=== PATIENT | male | born 1950 | race Caucasian/White ===

== ENCOUNTER 2017-01-28 14:00 | Inpatient (IN) ==
--- NOTE | 2017-01-28 14:17 | Emergency Department Note ---
SOB HPI - General Chief Complaint: Shortness of Breath/Dyspnea Stated Complaint: worsening shortness of breath Time Seen by Provider: 01/28/17 14:11 Source: patient Mode of arrival: EMS Limitations: no limitations - History of Present Illness This patient has had increasing shortness of breath for a month. He says it has been worse last 2 weeks. He does have a history of heart failure and may have gained quite a bit of weight from 347-417. He does take 80 mg of Lasix a day. No chest pain. At this time he looks pretty comfortable. He does live in an assisted living center. Complaint: shortness of breath Onset (ago): week(s) Severity: moderate Consistency/Duration: constant Improves with: oxygen, upright position Worsens with: lying flat Known history of: congestive heart failure Associated symptoms: Reports: denies other symptoms - Related Data Home Medications Medication Instructions Recorded Confirmed apixaban 5 mg tablet 5 mg PO BID 07/03/16 11/19/16 omeprazole 20 mg capsule,delayed 20 mg PO QDAY cap 07/03/16 11/19/16 release Bisacodyl [Dulcolax] 10 mg [place] ONCE PRN 10/29/16 11/19/16 diphenhydrAMINE HCL [Banophen] 25 mg PO Q6HP PRN 10/29/16 11/19/16 Previous Rx's Medication Instructions Recorded Vancomycin 2,000 mg IV Q24H #4 vial 11/03/16 cefTRIAXone [Rocephin] 2 gm IV Q24H #4 vial 11/03/16 finasteride 5 mg tablet 5 mg PO QDAY #90 tab 11/07/16 acetaminophen 500 mg tablet 500 mg PO Q8H PRN #90 tab 12/03/16 folic acid 1 mg tablet 2 tab PO QDAY #60 tab 12/03/16 lactulose 20 gram/30 mL oral 30 ml PO TID PRN #890 ml 12/03/16 solution potassium chloride ER 20 mEq 1 cap PO TID #90 tab 12/03/16 tablet,extended release(part/cryst) tamsulosin 0.4 mg capsule 0.4 mg PO BID #60 cap 12/03/16 tramadol 50 mg tablet 50 mg PO Q6H PRN #120 tab 12/04/16 atenolol 50 mg tablet 50 mg PO QDAY #45 tab 12/24/16 furosemide 80 mg tablet 80 mg PO QDAY #90 tab 01/02/17 CPAP with 02 1 puff INHALATION ONCE #1 each 01/06/17 oxycodone 5 mg capsule 5 mg PO Q6H PRN #120 cap 01/06/17 Allergies Allergy/AdvReac Type Severity Reaction Status Date / Time Penicillins Allergy Intermediate Hives Verified 10/29/16 19:28 codeine AdvReac Mild Nausea Verified 10/29/16 19:28 Review of Systems Constitutional: Denies: fever Eyes: Denies: eye pain ENT ED: Denies: ear pain Cardiovascular: Denies: chest pain, palpitations Respiratory: Reports: dyspnea. Denies: cough, wheezes Gastrointestinal: Denies: abdominal pain, nausea, vomiting Genitourinary: Denies: urgency Musculoskeletal: Denies: back pain Integumentary: Denies: rash Neurological: Denies: headache Psychiatric: Denies: anxiety Past Medical History - Past Medical History [facility] Narrative: Medical History (Last Updated 12/04/16 @ 14:[address]) Urinary tract infection (Acute) Complicated UTI (urinary tract infection) (Acute) Chest pain (Chronic) Patellar dislocation (Chronic) Localized, primary osteoarthritis of shoulder region (Chronic) Preglaucoma (Chronic) Gait instability (Chronic) Body mass index 50.0-59.9, adult (Chronic) Bilateral leg edema (Chronic) Chronic kidney disease, stage IV (severe) (Chronic) Cellulitis of right lower extremity (Chronic) Urinary retention (Chronic) Intertriginous candidiasis (Chronic) Scrotal edema (Chronic) Antral ulcer (Chronic 11/22/15) Spinal stenosis (Chronic) 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) Arthritis of shoulder (Chronic ~2003) Arthritis of both knees (Chronic ~1999) Melanoma (Chronic) Carcinoma (Chronic) Sarcoma (Chronic) Prostate cancer (Chronic ~2015) Daytime sleepiness (Chronic) Depression (Chronic) Atrial fibrillation (Chronic) Hearing loss (Chronic ~1975) Hypertension, essential (Chronic ~1981) Shoulder joint pain (Chronic) Knee joint pain (Chronic) Kidney failure (Chronic) Stomach ulcer (Chronic ~2015) Enlarged prostate (Chronic) Radiation (Chronic ~02/2016) Capps catheter in place (Chronic ~05/2016) History of tobacco use (Chronic) History of alcohol abuse (Chronic) Obstructive sleep apnea (Chronic) Hyperlipidemia (Chronic) Rotator cuff syndrome of right shoulder (Chronic) Osteoarthritis of both knees (Chronic) Chronic lower back pain (Chronic) Morbid obesity (Chronic) Alcohol abuse (Chronic) Elevated LFTs (Chronic) Hyperglycemia (Chronic) Past Surgical History (Last Updated 07/28/16 @ 09:36 by Alexa Marie) H/O Spinal surgery (Chronic ~2013) H/O colonoscopy (Chronic ~2007) H/O melanoma excision (Chronic ~1995) History of excision of lesion (Chronic ~1995) History of laminectomy (Chronic 02/2004) History of left knee replacement (Chronic ~2012) History of radiation therapy (Chronic 1995) History of surgery (Chronic ~03/19/15) S/P tendon repair (Chronic ~2013) Family History Brother Non Hodgkin's lymphoma Heart attack Family/Other Alzheimer's disease Mother Stroke Tuberculosis Pulmonary fibrosis Father Tuberculosis COPD (chronic obstructive pulmonary disease) Hx of CABG S/P AVR (aortic valve replacement) Medical history: Reports: arthritis, atrial fibrillation, coronary artery disease, hypertension, liver disease, other (history of morbid obesity, history of atrial fibrillation, history of multiple medical problems) Surgical history ED: Reports: orthopedic, other, prostatectomy, other (history of sarcoma, history of melanoma status post excision. History of prostate cancer) - Social History Alcohol use: Reports: Unknown Drug use: Reports: none Physical Exam - General Limitations: no limitations General appearance: alert, in no apparent distress - Head Head exam: atraumatic, normocephalic - Eye Eye exam: Present: normal appearance - ENT ENT exam: normal exam - Neck Neck exam: Present: normal inspection - Chest Chest inspection: Present: normal inspection - Respiratory Respiratory exam: Present: normal lung sounds bilaterally - Cardiovascular Cardiovascular exam: Present: regular rate, normal rhythm, normal heart sounds - Abdominal Exam Abdominal exam: Present: soft. Absent: distention, tenderness - Extremities Exam Extremities exam: Present: pedal edema - Neurological Exam Neurological exam: Present: alert - Psychiatric Psychiatric exam: Present: normal affect, normal mood - Skin Skin exam: Present: warm, dry, intact Course Vital Signs Temperature 97.3 F 01/28/17 14:01 Pulse Rate 72 01/28/17 14:01 Respiratory Rate 18 01/28/17 14:01 Blood Pressure 125/71 01/28/17 14:01 Pulse Oximetry (%) 92 01/28/17 14:01 Temperature 97.3 F 01/28/17 14:01 Pulse Rate 56 L 01/28/17 15:29 Respiratory Rate 13 01/28/17 15:29 Blood Pressure 121/65 01/28/17 15:29 Pulse Oximetry (%) 98 01/28/17 15:29 Shortness of Breath/Dyspnea - MDM Narrative Medical decision making narrative: Chest x-ray is consistent with congestive heart failure and a left lower lobe pneumonia. Upon and is 0.1 but creatinine is 2.1. I discussed case with Dr. Kirby and the patient will be admitted to telemetry unit here. I did give him Levaquin and 40 mg of Lasix IV. - Lab Data Lab results reviewed: Yes I reviewed the patient's lab results. Result diagrams: 01/28/17 14:16 01/28/17 14:16 Lab Results 01/28/17 01/28/17 01/28/17 Range/Units 14:16 14:16 14:16 WBC 3.6 L (4.5-11.0) K/mcL RBC 2.57 L (4.50-5.90) M/mcL Hgb 8.2 L (13.5-16.5) g/dL Hct 24.1 L (41.0-55.0) % MCV 93.7 (80.0-100.0) fL MCH 32.0 (26.0-34.0) pg MCHC 34.2 (31.0-36.0) g/dL RDW 15.6 H (11.5-14.5) % Plt Count 174 (140-440) K/mcL MPV 8.3 (7.4-10.4) fL Gran % 67.0 (38.0-78.0) % Lymph % (Auto) 13.3 L (15.5-49.0) % Ida % (Auto) 13.1 H (1.0-12.0) % Eos % (Auto) 5.7 (0.0-7.0) % Baso % (Auto) 0.9 (0.0-2.0) % Gran # 2.4 (1.8-8.0) K/mcL Lymph # (Auto) 0.5 L (1.5-4.8) K/mcL Ida # (Auto) 0.5 (0.1-0.9) K/mcL Eos # (Auto) 0.2 (0.0-0.7) K/mcL Baso # (Auto) 0 (0.0-0.3) K/mcL VBG Lactic Acid 2.1 (0.5-2.2) mmol/L Sodium 135 (133-145) mmol/L Potassium 4.3 (3.3-5.1) mmol/L Chloride 94 L (96-108) mmol/L Carbon Dioxide 29 (22-30) mmol/L Anion Gap 12.0 (8-16) BUN 39 H (8-23) mg/dl Creatinine 2.1 H (0.7-1.2) mg/dl GFR Calculation 32 Glucose 127 H (70-105) mg/dL Calcium 8.6 (8.6-10.4) mg/dl Total Bilirubin 1.5 H (0.0-1.0) mg/dL AST 28 (0-37) U/l ALT 12 (0-40) U/l Alkaline Phosphatase 108 (39-117) U/L Troponin T (0-0.03) ng/ml NT-Pro-B Natriuret Pep 1491.0 H (0-125) pg/ml Total Protein 7.6 (5.9-8.4) gm/dL Albumin 2.8 L (3.2-5.2) gm/dL Globulin 4.8 H (2.2-3.7) gm/dL Albumin/Globulin Ratio 0.6 L (1.0-2.3) 01/28/17 Range/Units 14:16 WBC (4.5-11.0) K/mcL RBC (4.50-5.90) M/mcL Hgb (13.5-16.5) g/dL Hct (41.0-55.0) % MCV (80.0-100.0) fL MCH (26.0-34.0) pg MCHC (31.0-36.0) g/dL RDW (11.5-14.5) % Plt Count (140-440) K/mcL MPV (7.4-10.4) fL Gran % (38.0-78.0) % Lymph % (Auto) (15.5-49.0) % Ida % (Auto) (1.0-12.0) % Eos % (Auto) (0.0-7.0) % Baso % (Auto) (0.0-2.0) % Gran # (1.8-8.0) K/mcL Lymph # (Auto) (1.5-4.8) K/mcL Ida # (Auto) (0.1-0.9) K/mcL Eos # (Auto) (0.0-0.7) K/mcL Baso # (Auto) (0.0-0.3) K/mcL VBG Lactic Acid (0.5-2.2) mmol/L Sodium (133-145) mmol/L Potassium (3.3-5.1) mmol/L Chloride (96-108) mmol/L Carbon Dioxide (22-30) mmol/L Anion Gap (8-16) BUN (8-23) mg/dl Creatinine (0.7-1.2) mg/dl GFR Calculation Glucose (70-105) mg/dL Calcium (8.6-10.4) mg/dl Total Bilirubin (0.0-1.0) mg/dL AST (0-37) U/l ALT (0-40) U/l Alkaline Phosphatase (39-117) U/L Troponin T 0.10 H* (0-0.03) ng/ml NT-Pro-B Natriuret Pep (0-125) pg/ml Total Protein (5.9-8.4) gm/dL Albumin (3.2-5.2) gm/dL Globulin (2.2-3.7) gm/dL Albumin/Globulin Ratio (1.0-2.3) - Radiology Data Radiology results reviewed: Yes I reviewed the patient's radiology results. Disposition Clinical Impression: Community acquired pneumonia, Congestive heart failure Disposition: Xfer As Inpt ([facility]) Condition: Fair Referrals: Jae Leblanc DO [Primary Care Provider] - Time of Disposition: 16:06
[2017-01-28 14:42] LABS: Basophils # (Auto) 0 K/mcL (0.0-0.3); Basophils % (Auto) 0.9 % (0.0-2.0); Eosinophils # (Auto) 0.2 K/mcL (0.0-0.7); Eosinophils % (Auto) 5.7 % (0.0-7.0); Lymphocytes # (Auto) 0.5 K/mcL (1.5-4.8); Lymphocytes % (Auto) 13.3 % (15.5-49.0); Mean Cell Volume 93.7 fL (80.0-100.0); Mean Corpuscular HGB Conc 34.2 g/dL (31.0-36.0); Monocytes # (Auto) 0.5 K/mcL (0.1-0.9); Monocytes % (Auto) 13.1 % (1.0-12.0); Platelet Count 174 K/mcL (140-440); RBC 2.57 M/mcL (4.50-5.90); Red Cell Distribution Width 15.6 % (11.5-14.5)
[2017-01-28 15:02] LABS: ALT/SGPT 12 U/l (0-40); Albumin 2.8 gm/dL (3.2-5.2); Albumin/Globulin Ratio 0.6 (1.0-2.3); Alkaline Phosphatase 108 U/L (39-117); Blood Urea Nitrogen 39 mg/dl (8-23)
--- NOTE | 2017-01-28 15:06 | XRay Report ---
CLINICAL INFORMATION: History of congestive heart failure. Dyspnea. TECHNIQUE: AP portable semierect chest x-ray COMPARISON: Previous examinations dated 01/07/2017, 10/29/2016. FINDINGS: Cardiomegaly. Pulmonary vascularity is prominent. There is bronchial wall thickening and probable interstitial edema. These findings are essentially stable. Left basilar infiltrate and probable left pleural effusion. Findings are consistent with pneumonia. This is worse than on previous examination. No focal right-sided infiltrate. No definite right pleural fluid. IMPRESSION: 1. Cardiomegaly and findings consistent with congestive heart failure. 2. Increasing left lower lobe infiltrate and pleural effusion. Findings are consistent with pneumonia Interpreted and Authenticated by: Jae Valenzuela 01/28/17
[2017-01-28] MEDS ORDERED: LEVOFLOXACIN 500 MG/100 ML BAG IV ONE (15:35)
[2017-01-28] MEDS ORDERED: FUROSEMIDE 40 MG/4 ML VIAL IV ONE (15:35)
--- NOTE | 2017-01-28 16:16 | Internal Med History&Physical ---
Medical - H&P: HPI Patient information: Note initiated : 01/28/17 at 4:12 pm Service Date, if different from initiated Date: [] Patient: Jamarcus Lovelace 66 y/o M admitted on for worsening shortness of breath. Chief Complaint: [] History of present illness: Mr. Lovelace is a 66 year old man with a history of heart failure, chronic kidney disease, atrial fibrillation, sleep apnea, morbid obesity, who apparently moved here from [place] late last year. He was apparently admitted to [facility] in July of this year with urosepsis. His daughter says that he was also admitted here in October with sepsis related to UTI, acute renal failure. She believes that at the time of discharge he weighed around 324 pounds. He has since been living at [facility], and her understanding is that his weight has crept back up to 417 pounds. The patient notes that he has been feeling more short of breath over the last week or so. He has noticed increased cough, which is been nonproductive. He denies associated fever or chills. He has been noticing increased abdominal swelling lately, and also fluid leaking from his skin. He says he occasionally feels a little dizzy, but denies chest pain. He is experiencing orthopnea when he lays down, so for the last couple of weeks he has been sleeping in his recliner. He finally presented to the emergency room today with the symptoms. ER evaluation showed worsening renal function, elevated BNP, hypoxia on room air , and likely new left lower lobe infiltrate. Troponin is also moderately elevated, but he also has chronic kidney disease. He is also quite anemic, but it looks like H and H have been stable since October. Otherwise, the patient denies fever or chills, new eye or ear symptoms, sore throat. He has moderate dyspnea with exertion. He denies abdominal pain, nausea or vomiting, diarrhea or constipation. He denies significant dysuria. His daughter feels that he is eating healthier and write more regular meals since being admitted to [place], but she says he does keep snacks in his room and she believes he snacks between meals. He does not weigh daily or keep a weight diary. He does not have a guard supervisor. He does not follow a fluid restricted diet or a sodium restricted diet. Medical History Alcohol abuse -past history of heavy drinking for about 20 years, from age 44- 64. He quit recently. Antral ulcer (Chronic 11/22/15) Arthritis of both knees (Chronic ~1999) Arthritis of shoulder (Chronic ~2003) Atrial fibrillation (Chronic) Bilateral leg edema (Chronic) Body mass index 50.0-59.9, adult (Chronic) Right shoulder skin carcinoma (Chronic) Cellulitis of right lower extremity (Chronic) Chronic kidney disease, stage IV (severe) (Chronic) Chronic lower back pain (Chronic) Daytime sleepiness (Chronic) Depression (Chronic) Elevated LFTs (Chronic) Enlarged prostate (Chronic) Gait instability (Chronic) Hearing loss (Chronic ~1975) History of tobacco use-he quit in the Hyperglycemia (Chronic) Hyperlipidemia (Chronic) Hypertension, essential (Chronic ~1981) Intertriginous candidiasis (Chronic) Melanoma (Chronic) Obstructive sleep apnea -treated with CPAP and oxygen. 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 Surgical History H/O Spinal surgery (Chronic ~2013) due to stenosis H/O colonoscopy (Chronic ~2007) Dr. Davidson H/O melanoma excision (Chronic ~1995) History of excision of lesion (Chronic ~1995) Removal of carcinoma History of laminectomy (Chronic 02/2004) bilateral History of left knee replacement (Chronic ~2012) History of radiation therapy (Chronic 1995) for sarcoma History of surgery (Chronic ~03/19/15) left open retinacular repair S/P tendon repair (Chronic ~2013) Tendon repair of left knee Medications: Tramadol 50 mg every 6 hours as needed Flomax 0.4 mg p.o. twice daily Finasteride 5 mg daily Potassium chloride 20 mEq 3 times daily Lasix 80 mg p.o. daily Oxycodone 5 mg every 6 hours as needed Omeprazole 20 mg daily Lactulose 20 g in 30 mL 3 times daily as needed constipation Folate 1 mg daily Diphenhydramine 25 mg every 6 hours as needed Atenolol 50 mg daily apixaban 5 mg twice daily Tylenol 500 mg every 8 hours as needed CPAP with supplemental oxygen nightly Dulcolax suppository daily as needed Allergies: Penicillin Codeine Family History Brother Non Hodgkin's lymphoma Heart attack Family/Other Alzheimer's disease Uncle Mother Stroke Tuberculosis Pulmonary fibrosis Father Tuberculosis COPD (chronic obstructive pulmonary disease) Social History marital status: , occupational status: retired. He recently moved here from [place], to be close to his daughter. occupation: [employer] smoking status: Former smoker-smoked a few years, and quit in the 1960s. alcohol intake frequency: Heavy alcohol abuse from about age [age], quit about 1 year ago. substance use type: marijuana, has used occasionally in the past. Medical - H&P: Meds Home Medications Medication Instructions Recorded Confirmed Type apixaban 5 mg tablet 5 mg PO BID 07/03/16 01/28/17 History omeprazole 20 mg capsule,delayed 20 mg PO QDAY cap 07/03/16 01/28/17 History release Bisacodyl [Dulcolax] 10 mg [place] ONCE PRN 10/29/16 01/28/17 History diphenhydrAMINE HCL [Banophen] 25 mg PO Q6HP PRN 10/29/16 01/28/17 History finasteride 5 mg tablet 5 mg PO QDAY #90 tab 11/07/16 01/28/17 Rx acetaminophen 500 mg tablet 500 mg PO Q8H PRN #90 tab 12/03/16 01/28/17 Rx folic acid 1 mg tablet 2 tab PO QDAY #60 tab 12/03/16 01/28/17 Rx lactulose 20 gram/30 mL oral 30 ml PO TID PRN #890 ml 12/03/16 01/28/17 Rx solution potassium chloride ER 20 mEq 1 cap PO TID #90 tab 12/03/16 01/28/17 Rx tablet,extended release(part/cryst) tamsulosin 0.4 mg capsule 0.4 mg PO BID #60 cap 12/03/16 01/28/17 Rx tramadol 50 mg tablet 50 mg PO Q6H PRN #120 tab 12/04/16 01/28/17 Rx atenolol 50 mg tablet 50 mg PO QDAY #45 tab 12/24/16 01/28/17 Rx furosemide 80 mg tablet 80 mg PO QDAY #90 tab 01/02/17 01/28/17 Rx CPAP with 02 1 puff INHALATION ONCE #1 each 01/06/17 01/28/17 Rx oxycodone 5 mg capsule 5 mg PO Q6H PRN #120 cap 01/06/17 01/28/17 Rx Allergies Allergy/AdvReac Type Severity Reaction Status Date / Time Penicillins Allergy Intermediate Hives Verified 10/29/16 19:28 codeine AdvReac Mild Nausea Verified 10/29/16 19:28 Medical - H&P: Exam - Constitutional Vitals: Temp Pulse Resp BP Pulse Ox 97.3 F 56 L 13 121/65 98 01/28/17 14:01 01/28/17 15:29 01/28/17 15:29 01/28/17 15:29 01/28/17 15:29 On exam, this is a morbidly overweight elderly man, who is in no acute distress. He is quite hard of hearing. He does have bilateral hearing aids in place. Head: Normocephalic, atraumatic. Eyes: PERRLA, EOMI, anicteric. Ears: TMs and canals are clear. Pharynx: Pharynx is clear. Teeth are in good repair. Neck: Is supple, without obvious JVD, thyromegaly, bruits, lymphadenopathy. Cardiac exam: Shows an irregularly irregular rhythm. 2/6 systolic ejection murmur is noted at the left lower sternal border. No rubs or gallops are appreciated. Lungs: Patient has coarse, wet sounding breath sounds with crackles, up to the apices bilaterally. Breathing is slightly labored. Abdomen: The patient is markedly obese, with a very large pannus. He has edema of his entire body, and there is marked swelling of the abdominal wall and all of the tissues around the pannus and his legs. He has numerous stretch harman as well. Abdomen is otherwise soft, and nontender. No masses could be appreciated. Bowel sounds are active. Extremities: Again, the patient has marked edema all the way up to the abdomen. Some areas are weeping clear fluid. Several areas on his feet and toes have skin abrasions. Neurologic: Patient is alert and oriented 3. Motor exam is grossly nonfocal. Skin exam: As noted above. Medical - H&P: Reslt - Labs CBC & Chem 7: 01/28/17 14:16 01/28/17 14:16 Labs: Short CBC 01/28/17 Range/Units 14:16 WBC 3.6 L (4.5-11.0) K/mcL Hgb 8.2 L (13.5-16.5) g/dL Hct 24.1 L (41.0-55.0) % Plt Count 174 (140-440) K/mcL BMP 01/28/17 14:16 Sodium 135 Potassium 4.3 Chloride 94 L Carbon Dioxide 29 BUN 39 H Creatinine 2.1 H Glucose 127 H Calcium 8.6 Cardiac Enzymes 01/28/17 Range/Units 14:16 Troponin T 0.10 H* (0-0.03) ng/ml Liver Function 01/28/17 Range/Units 14:16 Total Bilirubin 1.5 H (0.0-1.0) mg/dL AST 28 (0-37) U/l ALT 12 (0-40) U/l Alkaline Phosphatase 108 (39-117) U/L Albumin 2.8 L (3.2-5.2) gm/dL EKG: Shows atrial fibrillation at a rate of about 85. Slow R-wave progression, low voltage, diffusely flattened T waves. Chest x-ray shows pulmonary vascular congestion, which may be stable. Also left basilar infiltrate and probable left pleural effusion, consistent with pneumonia. Medical - H&P: A/P (1) Acute exacerbation of CHF (congestive heart failure) Current visit: Yes Status: Acute (2) Anasarca Current visit: Yes Status: Acute (3) LLL pneumonia Current visit: Yes Status: Acute (4) Elevated troponin Current visit: Yes Status: Acute (5) NARESH on CPAP Current visit: Yes Status: Chronic (6) Anemia, chronic renal failure Current visit: Yes Status: Chronic (7) Body mass index 50.0-59.9, adult Current visit: No Status: Chronic (8) Chronic kidney disease, stage IV (severe) Current visit: No Status: Chronic - Narrative A/P Narrative: #1. Cardiac. This patient presents with massive volume overload. It appears he has gained at least 70 pounds since October. He presents with anasarca. Lung exam and chest x-ray are consistent with severe CHF. This is associated with hypoxia. -Admit to telemetry. -Aggressive diuresis with IV Lasix. If blood pressure gets too low, switch to Lasix drip. Consider dobutamine if needed. -Monitor electrolytes closely. -Echocardiogram. -Capps catheter for accurate measurement. -Nutrition consult for education regarding low-sodium diet and fluid restriction. -Patient also presents with elevated troponin, without chest pain. My guess is this is related more due to his chronic kidney failure, but we will check follow -up serial enzymes and EKGs. Next -History of chronic atrial fibrillation. Rate controlled. Continue atenolol. Continue apixaban. -History of hypertension. Monitor. Continue home meds. 2. Infectious disease. Patient presents with signs and symptoms of left lower lobe pneumonia. -Cover with IV Rocephin for community-acquired pneumonia, and add clindamycin for possible aspiration. -Incentive spirometry. Pulmonary toilet. Albuterol nebs as needed. 3. Renal. Patient has a history of chronic renal disease. BUN and creatinine are slightly elevated above his baseline. Continue to follow. 4. Status: Patient would like to remain a full code. His daughter, Shahrzad, has his POA. 5. DVT prophylaxis: Continue apixaban. Mobilize as able. 6. Pulmonary -Patient has obstructive sleep apnea. Continue CPAP with oxygen as needed. 7. History of glucose intolerance. Monitor Accu-Cheks and cover with sliding scale insulin if needed. 8. Hematologic. History of chronic, severe anemia. This may be partly dilutional, but also is chronic based on kidney disease, heart failure, and past alcohol abuse. Monitor. Continue vitamin supplements. 9. . Patient has a history of prostate cancer, which was treated last year. He also had a Capps catheter associated urinary tract infection. He was seen last by Dr. Hernandez, but says he does not follow up with him. We strongly encouraged him to let us place a catheter for this admission, as we try to diurese him. He is giving that some thought. #10. Chronic pain. Continue pain meds as needed. This visit has taken approximately 75 minutes, to review the patient's case with the ER MD, review his old records, interview and examine him, review test results, review plan of care with the patient as well as with his daughter, and write orders.
[2017-01-28] MEDS ORDERED: NITROGLYCERIN 0.4 MG TAB.SUBL SL PRN (18:00)
[2017-01-28] MEDS ORDERED: DEXTROSE 50% 50 ML VIAL IV PRN (18:00)
[2017-01-28] MEDS ORDERED: DOCUSATE SODIUM 100 MG CAPSULE PO PRN (18:00)
[2017-01-28] MEDS ORDERED: ONDANSETRON 4 MG/2 ML VIAL IV PRN (18:00)
[2017-01-28] MEDS ORDERED: ACETAMINOPHEN 325 MG TABLET PO PRN (18:00)
[2017-01-28] MEDS ORDERED: PNEUMOCOCCAL 23-VAL P-SAC VAC 0.5 ML VIAL IM ONE (18:00)
[2017-01-28] MEDS ORDERED: NALOXONE HCL 0.4 MG/ML VIAL IV PRN (18:00)
[2017-01-28] MEDS ORDERED: MAGNESIUM HYDROXIDE 30 ML ORAL.SUSP PO PRN (18:00)
[2017-01-28] MEDS ORDERED: LORazepam 2 MG/ML VIAL IV PRN (18:00)
[2017-01-28] MEDS ORDERED: BISACODYL 10 MG SUPP.RECT PR PRN (18:42)
[2017-01-28] MEDS ORDERED: LACTULOSE 20 GM/30 ML ORAL.SOL PO PRN (18:42)
[2017-01-28] MEDS ORDERED: ACETAMINOPHEN 500 MG TABLET PO PRN ×2 (18:42→19:30)
[2017-01-28] MEDS ORDERED: CPAP INHALATION SCH (18:45)
[2017-01-28] MEDS ORDERED: [UNRECOGNIZED DRUG - OTHER] INHALATION SCH (18:45)
[2017-01-28] MEDS: ALBUTEROL SULFATE 2.5 MG/3 ML NEBULIZER NEB SCH (19:06)
[2017-01-28] MEDS ORDERED: ALBUTEROL SULFATE 2.5 MG/3 ML NEBULIZER ONE (19:17)
[2017-01-28] MEDS ORDERED: cefTRIAXone 1 GM VIAL ONE (19:27)
[2017-01-28] MEDS ORDERED: CLINDAMYCIN 600 MG/4 ML VIAL ONE ×2 (19:27→23:30)
[2017-01-28] MEDS: POTASSIUM CHLORIDE 20 MEQ TABLET PO SCH (19:33)
[2017-01-28] MEDS: CLINDAMYCIN 300 MG in DEXTROSE 5% IN WATER 50 ML IV SCH (19:34)
[2017-01-28] MEDS: FUROSEMIDE 100 MG/10 ML VIAL IV SCH (19:34)
[2017-01-28] MEDS: cefTRIAXone 1 GM in DEXTROSE 5% IN WATER 50 ML IV SCH (19:35)
[2017-01-28] MEDS: INSULIN LISPRO 1 UNIT/0.01 ML UNIT SQ SCH ×2 (19:35→21:32)
[2017-01-28] MEDS: oxyCODONE HCL 5 MG TABLET PO PRN (20:25)
[2017-01-28] MEDS: 0.9 % SODIUM CHLORIDE 10 ML SYRINGE IV SCH (21:35)
[2017-01-28] MEDS: APIXABAN 5 MG TABLET PO SCH (21:58)
[2017-01-28] MEDS: TAMSULOSIN 0.4 MG CAPSULE PO SCH (21:58)
[2017-01-29] MEDS: CLINDAMYCIN 300 MG in DEXTROSE 5% IN WATER 50 ML IV SCH ×4 (00:08→17:25)
[2017-01-29] MEDS: ALBUTEROL SULFATE 2.5 MG/3 ML NEBULIZER NEB SCH ×4 (01:17→19:10)
[2017-01-29] MEDS: oxyCODONE HCL 5 MG TABLET PO PRN ×4 (05:06→22:39)
[2017-01-29] MEDS ORDERED: CLINDAMYCIN 600 MG/4 ML VIAL ONE (05:20)
[2017-01-29] MEDS: 0.9 % SODIUM CHLORIDE 10 ML SYRINGE IV SCH ×4 (06:00→22:38)
[2017-01-29 06:18] LABS: Basophils # (Auto) 0 K/mcL (0.0-0.3); Basophils % (Auto) 0.5 % (0.0-2.0); Eosinophils # (Auto) 0.2 K/mcL (0.0-0.7); Eosinophils % (Auto) 6.6 % (0.0-7.0); Granulocytes % (Auto) 66.7 % (38.0-78.0); Lymphocytes # (Auto) 0.4 K/mcL (1.5-4.8); Lymphocytes % (Auto) 13.5 % (15.5-49.0); Mean Cell Volume 93.8 fL (80.0-100.0); Mean Corpuscular HGB Conc 34.3 g/dL (31.0-36.0); Mean Corpuscular Hemoglobin 32.1 pg (26.0-34.0); Monocytes # (Auto) 0.4 K/mcL (0.1-0.9); Monocytes % (Auto) 12.7 % (1.0-12.0); Platelet Count 163 K/mcL (140-440); RBC 2.46 M/mcL (4.50-5.90); Red Cell Distribution Width 15.6 % (11.5-14.5)
[2017-01-29 06:48] LABS: ALT/SGPT 12 U/l (0-40); Albumin/Globulin Ratio 0.7 (1.0-2.3); Alkaline Phosphatase 102 U/L (39-117); Bilirubin,Direct 0.5 mg/dL (0.0-0.3); Blood Urea Nitrogen 38 mg/dl (8-23); Gamma Glutamyl Transpeptidase 64 U/L (8-61); Magnesium 2.5 mg/dL (1.6-2.5); Uric Acid 12.2 mg/dL (2.5-8.0)
[2017-01-29] MEDS: PANTOPRAZOLE 40 MG TABLET PO SCH (07:39)
[2017-01-29] MEDS: FINASTERIDE 5 MG TABLET PO SCH (07:54)
[2017-01-29] MEDS: POTASSIUM CHLORIDE 20 MEQ TABLET PO SCH ×3 (07:54→17:26)
[2017-01-29] MEDS: TAMSULOSIN 0.4 MG CAPSULE PO SCH ×2 (07:54→20:49)
[2017-01-29] MEDS: FOLIC ACID 1 MG TABLET PO SCH (07:54)
[2017-01-29] MEDS ORDERED: FUROSEMIDE 100 MG/10 ML VIAL IV SCH (08:00)
--- NOTE | 2017-01-29 08:02 | XRay Report ---
CLINICAL INFORMATION: Congestive heart failure. Pneumonia. TECHNIQUE: AP and lateral upright chest x-ray. Patient was in a wheelchair and is unable to stand COMPARISON: 01/28/2017, 01/07/2017 FINDINGS: Persistent cardiomegaly. Upper lobe vascularity is prominent consistent pulmonary congestion. Consolidation at the left lung base and left pleural fluid. Patient remains consistent with pneumonia. No definite interval change since 01/28/2017. No new abnormality. IMPRESSION: No definite interval change. Left basilar consolidation and pleural effusion remain consistent with pneumonia Interpreted and Authenticated by: Jae Valenzuela 01/29/17
[2017-01-29] MEDS: cefTRIAXone 1 GM in DEXTROSE 5% IN WATER 50 ML IV SCH (08:43)
[2017-01-29] MEDS: ATENOLOL 50 MG TABLET PO SCH (08:43)
[2017-01-29] MEDS: traMADol 50 MG TABLET PO PRN ×2 (08:43→20:48)
[2017-01-29] MEDS: APIXABAN 5 MG TABLET PO SCH ×2 (08:43→20:48)
[2017-01-29] MEDS: INSULIN LISPRO 1 UNIT/0.01 ML UNIT SQ SCH ×4 (08:45→20:49)
[2017-01-29] MEDS ORDERED: OMEPRAZOLE 20 MG CAPSULE PO SCH (09:00)
[2017-01-29] MEDS: FUROSEMIDE 100 MG/10 ML VIAL IV SCH ×2 (09:07→22:47)
--- NOTE | 2017-01-29 11:31 | Internal Med Progress Note ---
Medical - PN: Subj Patient information: Note initiated : 01/29/17 at 11:30 am Service Date, if different from initiated Date: [] Patient: Jamarcus Lovelace 66 y/o M admitted on 01/28/17 for worsening shortness of breath. Chief Complaint: [] Interval history: January 28, 2017: History of present illness: Mr. Lovelace is a 66 year old man with a history of heart failure, chronic kidney disease, atrial fibrillation, sleep apnea, morbid obesity, who apparently moved here from [place] late last year. He was apparently admitted to [facility] in July of this year with urosepsis. His daughter says that he was also admitted here in October with sepsis related to UTI, acute renal failure. She believes that at the time of discharge he weighed around 324 pounds. He has since been living at [facility], and her understanding is that his weight has crept back up to 417 pounds. The patient notes that he has been feeling more short of breath over the last week or so. He has noticed increased cough, which is been nonproductive. He denies associated fever or chills. He has been noticing increased abdominal swelling lately, and also fluid leaking from his skin. He says he occasionally feels a little dizzy, but denies chest pain. He is experiencing orthopnea when he lays down, so for the last couple of weeks he has been sleeping in his recliner. He finally presented to the emergency room today with the symptoms. ER evaluation showed worsening renal function, elevated BNP, hypoxia on room air , and likely new left lower lobe infiltrate. Troponin is also moderately elevated, but he also has chronic kidney disease. He is also quite anemic, but it looks like H and H have been stable since October. Otherwise, the patient denies fever or chills, new eye or ear symptoms, sore throat. He has moderate dyspnea with exertion. He denies abdominal pain, nausea or vomiting, diarrhea or constipation. He denies significant dysuria. His daughter feels that he is eating healthier and write more regular meals since being admitted to [facility], but she says he does keep snacks in his room and she believes he snacks between meals. He does not weigh daily or keep a weight diary. He does not have a radiography technician. He does not follow a fluid restricted diet or a sodium restricted diet. January 29: Today, the patient states he is having some cramping, mainly in his left thigh area. He says he has a little dyspnea when he tries to lay down, but denies significant dyspnea when he got out of bed to use the bedside commode today. He also has various aches and pains due to his arthritis pain in his shoulders and hips, etc. Otherwise, he denies fever or chills, dizziness, chest pain or palpitations, abdominal pain, nausea or vomiting, diarrhea or constipation. Capps catheter remains in place, and he says he is tolerating that quite well. - Constitutional Vitals: Vital Signs Temp Pulse Resp BP Pulse Ox 98.8 F 61 16 99/66 100 01/29/17 07:43 01/29/17 11:17 01/29/17 11:17 01/29/17 11:01 01/29/17 11:17 Period Temp Pulse Resp BP Sys/Siegel Pulse Ox Last 24 Hr 97.0 F-98.8 F 32-118 10-24 99-148/53-95 80-100 Intake and Output 01/28/17 01/29/17 01/29/17 21:59 05:59 13:59 Intake Total 0 / 100 150 / 150 650 / 650 Output Total 850 / 1300 1015 / 1015 75 / 75 Balance -850 / -1200 -865 / -865 575 / 575 Weight 413 lb On exam, he is in no acute distress, although he does grimace about the cramping in his left thigh. Neck is supple without obvious lymphadenopathy. Cardiac exam shows a slightly irregular rhythm, with 2/6 systolic ejection murmur. Lungs show fairly diffuse crackles and wheezes throughout both lung dukes. Abdomen is obese, with significant abdominal wall edema. There is no significant tenderness. Extremities: Show greater than 4+ edema up to the abdomen. Neurologic exam: Is grossly nonfocal. Intake & Output: Intake & Output 01/28/17 01/29/17 01/29/17 21:59 05:59 13:59 Intake Total 0 / 100 150 / 150 650 / 650 Output Total 850 / 1300 1015 / 1015 75 / 75 Balance -850 / -1200 -865 / -865 575 / 575 Weight 413 lb Intake: Oral 0 / 0 650 / 650 IV - Manual Only 150 / 150 Output: Urine Catheter Amount 850 / 850 1015 / 1015 75 / 75 Medical - PN: Obj Da - Labs CBC & Chem 7: 01/29/17 03:55 01/29/17 03:55 Labs: Abnormal Lab Results 01/29/17 01/29/17 01/29/17 03:55 03:55 03:55 WBC 3.2 L RBC 2.46 L Hgb 7.9 L Hct 23.1 L RDW 15.6 H Lymph % (Auto) 13.5 L Traill % (Auto) 12.7 H Lymph # (Auto) 0.4 L BUN 38 H Creatinine 2.0 H Uric Acid 12.2 H Calcium 8.5 L Phosphorus 4.7 H Total Bilirubin 1.5 H Direct Bilirubin 0.5 H GGT 64 H Troponin T 0.10 H* Albumin 3.0 L Globulin 4.3 H Albumin/Globulin Ratio 0.7 L 01/28/17 20:05 WBC RBC Hgb Hct RDW Lymph % (Auto) Traill % (Auto) Lymph # (Auto) BUN Creatinine Uric Acid Calcium Phosphorus Total Bilirubin Direct Bilirubin GGT Troponin T 0.10 H* Albumin Globulin Albumin/Globulin Ratio January 29: He has diuresed about 2200 mL so far. Echocardiogram: Is pending Chest x-ray: Shows persistent cardiomegaly, pulmonary vascular congestion, left basilar pneumonia with effusion. No significant change. January 28: MRSA screen is negative. EKG: Shows atrial fibrillation at a rate of about 75. Slow R-wave progression, low voltage, diffusely flattened T waves. Chest x-ray shows pulmonary vascular congestion, which may be stable. Also left basilar infiltrate and probable left pleural effusion, consistent with pneumonia. Meds: Medications Acetaminophen (Tylenol) 500 mg PO Q8HP PRN PRN Reason: pain Albuterol Sulfate (Ventolin) 2.5 mg NEB Q6HRT [facility] Last Admin: 01/29/17 07:06 Dose: 2.5 mg Atenolol (Tenormin) 50 mg PO QDAY [facility] Last Admin: 01/29/17 08:43 Dose: 50 mg Bisacodyl (Dulcolax) [address] ONCE PRN PRN Reason: Constipation Dextrose (Dextrose 50%) 0 ml IV UD PRN PRN Reason: Hypoglycemia Diagnostic Test (Pha) (Accu-Chek) 1 each FS ACHS [facility] Last Admin: 01/29/17 08:45 Dose: Not Given Docusate Sodium (Colace) 100 mg PO BID PRN PRN Reason: Constipation Finasteride (Proscar) 5 mg PO QDAY [facility] Last Admin: 01/29/17 07:54 Dose: 5 mg Folic Acid (Folic Acid) 2 mg PO QDAY [facility] Last Admin: 01/29/17 07:54 Dose: 2 mg Furosemide (Lasix) 80 mg IV BIDD [facility] Last Admin: 01/29/17 09:07 Dose: 80 mg Ceftriaxone Sodium 1 gm/ (Dextrose) 50 mls @ 100 mls/hr IV Q24H [facility] [place] Last Admin: 01/29/17 08:43 Dose: 100 mls/hr Clindamycin Phosphate 300 mg/ (Dextrose) 52 mls @ 100 mls/hr IV Q6H [facility] Last Admin: 01/29/17 11:19 Dose: 100 mls/hr Insulin Human Lispro (Humalog) 0 unit SQ [facility] PRN Reason: Protocol Last Admin: 01/29/17 08:45 Dose: Not Given Lactulose (Cephulac) 20 gm PO TID PRN PRN Reason: Constipation Lorazepam (Ativan) 0.5 mg IV Q2HP PRN PRN Reason: ANXIETY/SEDATION Magnesium Hydroxide (Milk Of Magnesia) 30 ml PO DAILYP PRN PRN Reason: Constipation Morphine Sulfate (Morphine) 4 mg IV Q2HP PRN PRN Reason: Pain Naloxone HCl (Narcan) 0.1 mg IV Q2MIN PRN PRN Reason: Opiate Reversal Nitroglycerin (Nitrostat) 0.4 mg SL Q5M PRN PRN Reason: Chest Pain Ondansetron HCl (Zofran) 4 mg IV Q4-6HP PRN PRN Reason: Nausea And Vomiting Oxycodone HCl (Roxicodone) 5 mg PO Q6HP PRN PRN Reason: Pain Last Admin: 01/29/17 11:18 Dose: 5 mg Pantoprazole Sodium (Protonix) 40 mg PO QAMAC [facility] Last Admin: 01/29/17 07:39 Dose: 40 mg Potassium Chloride (Kdur) 20 meq PO TIDCC [facility] Last Admin: 01/29/17 11:18 Dose: 20 meq Sodium Chloride (Saline Flush) 10 ml IV Q8 [facility] Last Admin: 01/29/17 09:07 Dose: 10 ml Tamsulosin HCl (Flomax) 0.4 mg PO BID [facility] Last Admin: 01/29/17 07:54 Dose: 0.4 mg Tramadol HCl (Ultram) 50 mg PO Q6H PRN PRN Reason: pain Last Admin: 01/29/17 08:43 Dose: 50 mg Medical - PN: A/P - Time Spent With Patient Total time spent is greater than 50% in coordination of care (as documented) at patient's floor/unit and/or counseling patient: Greater than 35 minutes (1) Acute exacerbation of CHF (congestive heart failure) Status: Acute Current Visit: Yes (2) Anasarca Status: Acute Current Visit: Yes (3) LLL pneumonia Status: Acute Current Visit: Yes (4) Elevated troponin Status: Acute Current Visit: Yes (5) NARESH on CPAP Status: Chronic Current Visit: Yes (6) Anemia, chronic renal failure Status: Chronic Current Visit: Yes (7) Body mass index 50.0-59.9, adult Status: Chronic Current Visit: No (8) Chronic kidney disease, stage IV (severe) Status: Chronic Current Visit: No - Narrative A/P Narrative: #1. Cardiac. This patient presents with massive volume overload. It appears he has gained at least 70 pounds since October. He presents with anasarca. Lung exam and chest x-ray are consistent with severe CHF. This is associated with hypoxia. -Continue to monitor in ICU. I think I will switch the intermittent Lasix over to a Lasix drip, as that may give him a smoother diuresis with less labile blood pressures. So far he is diuresing well. -Echocardiogram is pending. -Continue Capps catheter for accurate intake and output. -Nutrition consult for education regarding low-sodium diet and fluid restriction. -Patient also presents with elevated troponin, without chest pain. My guess is this is related more due to his chronic kidney failure, and this has remained stable. He denies any symptoms. -History of chronic atrial fibrillation. Rate controlled. Continue atenolol. Continue apixaban. -History of hypertension. Controlled. Continue to monitor. 2. Infectious disease. Patient presents with signs and symptoms of left lower lobe pneumonia. -Cover with IV Rocephin for community-acquired pneumonia, and add clindamycin for possible aspiration. -He seems to be doing well with current treatment. -Continue incentive spirometry. Pulmonary toilet. Albuterol nebs as needed. 3. Renal. Patient has a history of chronic renal disease. BUN and creatinine are slightly elevated above his baseline. Continue to follow. 4. Status: Patient would like to remain a full code. His daughter, Shahrzad, has his POA. 5. DVT prophylaxis: Continue apixaban. Mobilize as able. 6. Pulmonary -Patient has obstructive sleep apnea. Continue CPAP with oxygen as needed. 7. History of glucose intolerance. Monitor Accu-Cheks and cover with sliding scale insulin if needed. 8. Hematologic. History of chronic, severe anemia. This may be partly dilutional, but also is chronic based on kidney disease, heart failure, and past alcohol abuse. Monitor. Continue vitamin supplements. -He does not give a specific history of coronary artery disease, so we will keep his hemoglobin above 7 at this time. If he develops any worsening symptoms we may transfuse him to a hemoglobin of 8. 9. . Patient has a history of prostate cancer, which was treated last year. He also had a Capps catheter associated urinary tract infection. He was seen last by Dr. Hernandez, but says he does not follow up with him. -The patient did accept Capps catheter placement. #10. Chronic pain. Continue pain meds as needed. I encouraged him to let the nurses know when he was having pain, so they can bring him his as needed meds. #11. For his leg cramping, I will add oral potassium and calcium. Magnesium is already at the upper limits of normal. Continue to follow. Medical - PN: Qual - VTE Deep Vein Thrombosis/Pulmonary Embolism Present on Admission: No
[2017-01-29] MEDS: POTASSIUM CHLORIDE 10 MEQ TABLET PO SCH ×2 (12:25→17:28)
[2017-01-29] MEDS: CALCIUM W/VIT D3 500 MG TABLET PO SCH ×2 (12:32→20:40)
[2017-01-29] MEDS ORDERED: FUROSEMIDE 250 MG in 0.9 % SODIUM CHLORIDE 225 ML IV SCH (18:00)
[2017-01-29] MEDS: FUROSEMIDE 250 MG in 0.9 % SODIUM CHLORIDE 225 ML IV SCH (22:42)
[2017-01-30] MEDS: CLINDAMYCIN 300 MG in DEXTROSE 5% IN WATER 50 ML IV SCH ×4 (00:28→18:07)
[2017-01-30] MEDS: ALBUTEROL SULFATE 2.5 MG/3 ML NEBULIZER NEB SCH ×4 (01:23→18:43)
[2017-01-30] MEDS ORDERED: FUROSEMIDE 100 MG/10 ML VIAL IV ONE (03:49)
[2017-01-30] MEDS: FUROSEMIDE 250 MG in 0.9 % SODIUM CHLORIDE 225 ML IV SCH ×5 (03:54→22:34)
[2017-01-30] MEDS: 0.9 % SODIUM CHLORIDE 10 ML SYRINGE IV SCH ×3 (05:34→22:06)
[2017-01-30 06:06] LABS: Basophils # (Auto) 0 K/mcL (0.0-0.3); Basophils % (Auto) 0.4 % (0.0-2.0); Eosinophils # (Auto) 0.3 K/mcL (0.0-0.7); Eosinophils % (Auto) 7.4 % (0.0-7.0); Granulocytes % (Auto) 68.9 % (38.0-78.0); Lymphocytes # (Auto) 0.4 K/mcL (1.5-4.8); Lymphocytes % (Auto) 9.3 % (15.5-49.0); Mean Cell Volume 93.8 fL (80.0-100.0); Mean Corpuscular HGB Conc 34.2 g/dL (31.0-36.0); Mean Corpuscular Hemoglobin 32.1 pg (26.0-34.0); Monocytes # (Auto) 0.6 K/mcL (0.1-0.9); Platelet Count 142 K/mcL (140-440); RBC 2.45 M/mcL (4.50-5.90)
[2017-01-30 06:30] LABS: ALT/SGPT 12 U/l (0-40); Albumin 3.1 gm/dL (3.2-5.2); Albumin/Globulin Ratio 0.7 (1.0-2.3); Alkaline Phosphatase 102 U/L (39-117); Bilirubin,Direct 0.5 mg/dL (0.0-0.3); Blood Urea Nitrogen 38 mg/dl (8-23); Gamma Glutamyl Transpeptidase 66 U/L (8-61); Magnesium 2.4 mg/dL (1.6-2.5); Uric Acid 11.9 mg/dL (2.5-8.0)
[2017-01-30] MEDS: PANTOPRAZOLE 40 MG TABLET PO SCH (07:52)
[2017-01-30] MEDS: INSULIN LISPRO 1 UNIT/0.01 ML UNIT SQ SCH ×4 (08:27→20:59)
[2017-01-30] MEDS: POTASSIUM CHLORIDE 20 MEQ TABLET PO SCH ×3 (08:28→18:08)
[2017-01-30] MEDS: FINASTERIDE 5 MG TABLET PO SCH (08:28)
[2017-01-30] MEDS: POTASSIUM CHLORIDE 10 MEQ TABLET PO SCH (08:28)
[2017-01-30] MEDS: ATENOLOL 50 MG TABLET PO SCH (08:28)
[2017-01-30] MEDS: CALCIUM W/VIT D3 500 MG TABLET PO SCH ×2 (08:28→20:36)
[2017-01-30] MEDS: APIXABAN 5 MG TABLET PO SCH ×2 (08:28→20:36)
[2017-01-30] MEDS: TAMSULOSIN 0.4 MG CAPSULE PO SCH ×2 (08:29→20:36)
[2017-01-30] MEDS: cefTRIAXone 1 GM in DEXTROSE 5% IN WATER 50 ML IV SCH (08:29)
[2017-01-30] MEDS: FOLIC ACID 1 MG TABLET PO SCH (08:29)
[2017-01-30] MEDS ORDERED: FUROSEMIDE 250 MG in 0.9 % SODIUM CHLORIDE 225 ML IV SCH (09:00)
--- NOTE | 2017-01-30 10:41 | Internal Med Progress Note ---
Medical - PN: Subj Patient information: Note initiated : 01/30/17 at 10:41 am Patient: Jamarcus Lovelace 66 y/o M admitted on 01/28/17 for Worsening Shortness of Breath/CHF, Pneumonia. Interval history: January 28, 2017: History of present illness: Mr. Lovelace is a 66 year old man with a history of heart failure, chronic kidney disease, atrial fibrillation, sleep apnea, morbid obesity, who apparently moved here from [place] late last year. He was apparently admitted to [facility] in July of this year with urosepsis. His daughter says that he was also admitted here in October with sepsis related to UTI, acute renal failure. She believes that at the time of discharge he weighed around 324 pounds. He has since been living at [facility], and her understanding is that his weight has crept back up to 417 pounds. The patient notes that he has been feeling more short of breath over the last week or so. He has noticed increased cough, which is been nonproductive. He denies associated fever or chills. He has been noticing increased abdominal swelling lately, and also fluid leaking from his skin. He says he occasionally feels a little dizzy, but denies chest pain. He is experiencing orthopnea when he lays down, so for the last couple of weeks he has been sleeping in his recliner. He finally presented to the emergency room today with the symptoms. ER evaluation showed worsening renal function, elevated BNP, hypoxia on room air , and likely new left lower lobe infiltrate. Troponin is also moderately elevated, but he also has chronic kidney disease. He is also quite anemic, but it looks like H and H have been stable since October. Otherwise, the patient denies fever or chills, new eye or ear symptoms, sore throat. He has moderate dyspnea with exertion. He denies abdominal pain, nausea or vomiting, diarrhea or constipation. He denies significant dysuria. His daughter feels that he is eating healthier and write more regular meals since being admitted to [place], but she says he does keep snacks in his room and she believes he snacks between meals. He does not weigh daily or keep a weight diary. 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 He does not follow a fluid restricted diet or a sodium restricted diet. January 29: Today, the patient states he is having some cramping, mainly in his left thigh area. He says he has a little dyspnea when he tries to lay down, but denies significant dyspnea when he got out of bed to use the bedside commode today. He also has various aches and pains due to his arthritis pain in his shoulders and hips, etc. Otherwise, he denies fever or chills, dizziness, chest pain or palpitations, abdominal pain, nausea or vomiting, diarrhea or constipation. Capps catheter remains in place, and he says he is tolerating that quite well. January 30: Today, the patient says he is feeling better he thinks. He still has mild orthopnea, but denies less shortness of breath otherwise. He denies fever or chills, significant cough, chest pain or palpitations, abdominal pain, nausea or vomiting, diarrhea or constipation. He continues to have severe edema of his lower extremities and abdomen, but this does not seem to bother him. -He does not report leg cramps today. -He is tolerating his Capps catheter just fine so far. -he remains in atrial fibrillation, with well-controlled rate. -He remains afebrile, and in spite of pneumonia on his chest x-ray. White blood cell count continues below normal. -He sleeps fine with his CPAP at night. During the day, he is sleeping on and off. He does not drop his saturations too much as long as he keeps his oxygen on. - Constitutional Vitals: Vital Signs Temp Pulse Resp BP Pulse Ox 97.1 F 76 19 99/51 97 01/30/17 09:39 01/30/17 10:19 01/30/17 10:19 01/30/17 10:01 01/30/17 10:19 Period Temp Pulse Resp BP Sys/Siegel Pulse Ox Last 24 Hr 97.1 F-98.6 F 57-149 12-24 81-148/22-127 80-100 Intake and Output 01/29/17 01/30/17 01/30/17 21:59 05:59 13:59 Intake Total 555 / 555 548 / 548 120 / 120 Output Total 1100 / 1100 580 / 580 425 / 425 Balance -545 / -545 -32 / -32 -305 / -305 Weight 407 lb 4.8 oz Intake & Output: Intake & Output 01/29/17 01/30/17 01/30/17 21:59 05:59 13:59 Intake Total 555 / 555 548 / 548 120 / 120 Output Total 1100 / 1100 580 / 580 425 / 425 Balance -545 / -545 -32 / -32 -305 / -305 Weight 407 lb 4.8 oz Intake: IV 255 / 255 398 / 398 Cleocin 300 mg In 52 / 52 52 / 52 Dextrose 5% in Water 50 ml @ 100 mls/hr IV Q6H YELENA Rx#:[id number] Lasix 250 mg In Sodium 153 / 153 249 / 249 Chloride 0.9% 225 ml @ 0. 2 MG/KG/HR 37.46 mls/hr IV Q12H YELENA Rx#:[id number] Rocephin 1 gm In Dextrose 50 / 50 5% in Water 50 ml @ 100 mls/hr IV Q24H YELENA Rx#: [id number] Oral 300 / 300 150 / 150 120 / 120 Output: Urine Catheter Amount 1100 / 1100 580 / 580 235 / 235 Void Amount 190 / 190 Other: Meal Dinner Breakfast Percent of Meal Consumed 100% 100% Feeding Ability Independent On exam, he is in no acute distress. Neck is supple without obvious lymphadenopathy. Cardiac exam shows a slightly irregular rhythm, with 2/6 systolic ejection murmur. Lungs show fairly diffuse crackles and wheezes throughout both lung dukes. Abdomen is obese, with significant abdominal wall edema. There is no significant tenderness. Extremities: Show greater than 4+ edema up to the abdomen. Neurologic exam: Is grossly nonfocal. Medical - PN: Obj Da - Labs CBC & Chem 7: 01/30/17 04:10 01/30/17 04:10 Labs: Abnormal Lab Results 01/30/17 01/30/17 01/29/17 04:10 04:10 03:55 WBC 4.3 L 3.2 L RBC 2.45 L 2.46 L Hgb 7.9 L 7.9 L Hct 23.0 L 23.1 L RDW 16.0 H 15.6 H Lymph % (Auto) 9.3 L 13.5 L [place] % (Auto) 14.0 H 12.7 H Eos % (Auto) 7.4 H Lymph # (Auto) 0.4 L 0.4 L Chloride 95 L BUN 38 H Creatinine 2.0 H Uric Acid 11.9 H Calcium Phosphorus Total Bilirubin 1.4 H Direct Bilirubin 0.5 H GGT 66 H Lactate Dehydrogenase 259 H Troponin T Albumin 3.1 L Globulin 4.3 H Albumin/Globulin Ratio 0.7 L 01/29/17 01/29/17 01/28/17 03:55 03:55 20:05 WBC RBC Hgb Hct RDW Lymph % (Auto) [place] % (Auto) Eos % (Auto) Lymph # (Auto) Chloride BUN 38 H Creatinine 2.0 H Uric Acid 12.2 H Calcium 8.5 L Phosphorus 4.7 H Total Bilirubin 1.5 H Direct Bilirubin 0.5 H GGT 64 H Lactate Dehydrogenase Troponin T 0.10 H* 0.10 H* Albumin 3.0 L Globulin 4.3 H Albumin/Globulin Ratio 0.7 L January 29: He has diuresed about 2200 mL so far. Echocardiogram: Shows moderate concentric LVH, mildly dilated left ventricle, with normal systolic function, LVEF of 65%. Moderately dilated left and right atrium. Mild mitral regurg. Unable to assess right ventricular systolic pressures. EKG: Shows atrial fibrillation at a rate of 70. Possible old anteroseptal HI. Chest x-ray: Shows persistent cardiomegaly, pulmonary vascular congestion, left basilar pneumonia with effusion. No significant change. January 28: CBC shows white blood cell count of 3600, hemoglobin 8.2, hematocrit 24, RDW 15.6. Absolute granulocyte count normal at 2400. Absolute lymphocyte count low at 500. Lactic acid is normal at 2.1 Chemistry panel: Sodium 135, potassium 4.3, chloride 94, BUN 39, creatinine 2.1 , glucose 127, total bilirubin 1.5 Albumin is low at 2.8, globulin elevated at 4.8 MRSA screen is negative. Troponin elevated at 0.10 BNP elevated at 1491 EKG: Shows atrial fibrillation at a rate of about 75. Slow R-wave progression, low voltage, diffusely flattened T waves. Chest x-ray shows pulmonary vascular congestion, which may be stable. Also left basilar infiltrate and probable left pleural effusion, consistent with pneumonia. Meds: Medications Acetaminophen (Tylenol) 500 mg PO Q8HP PRN PRN Reason: pain Albuterol Sulfate (Ventolin) 2.5 mg NEB Q6HRT YELENA Last Admin: 01/30/17 07:01 Dose: 2.5 mg Atenolol (Tenormin) 50 mg PO QDAY [facility] Last Admin: 01/30/17 08:28 Dose: 50 mg Bisacodyl (Dulcolax) 10 mg UT ONCE PRN PRN Reason: Constipation Calcium/Vitamin D (Calcium W/Vit D3) 500 mg PO BID [facility] Last Admin: 01/30/17 08:28 Dose: 500 mg Dextrose (Dextrose 50%) 0 ml IV UD PRN PRN Reason: Hypoglycemia Diagnostic Test (Pha) (Accu-Chek) 1 each FS ACHS [facility] Last Admin: 01/30/17 08:27 Dose: 1 each Docusate Sodium (Colace) 100 mg PO BID PRN PRN Reason: Constipation Finasteride (Proscar) 5 mg PO QDAY [facility] Last Admin: 01/30/17 08:28 Dose: 5 mg Folic Acid (Folic Acid) 2 mg PO QDAY [facility] Last Admin: 01/30/17 08:29 Dose: 2 mg Ceftriaxone Sodium 1 gm/ (Dextrose) 50 mls @ 100 mls/hr IV Q24H [facility] Last Admin: 01/30/17 08:29 Dose: 100 mls/hr Clindamycin Phosphate 300 mg/ (Dextrose) 52 mls @ 100 mls/hr IV Q6H [facility] Last Admin: 01/30/17 05:34 Dose: 100 mls/hr Furosemide 250 mg/ Sodium (Chloride) 250 mls @ 37.46 mls/hr IV Q6H [facility]; 0.2 MG/ KG/HR PRN Reason: Protocol Last Admin: 01/30/17 09:23 Dose: 0.3 mg/kg/hr, 56.2 mls/hr Insulin Human Lispro (Humalog) 0 unit SQ [facility] PRN Reason: Protocol Last Admin: 01/30/17 08:27 Dose: Not Given Lactulose (Cephulac) 20 gm PO TID PRN PRN Reason: Constipation Lorazepam (Ativan) 0.5 mg IV Q2HP PRN PRN Reason: ANXIETY/SEDATION Last Admin: 01/29/17 22:39 Dose: 0.5 mg Magnesium Hydroxide (Milk Of Magnesia) 30 ml PO DAILYP PRN PRN Reason: Constipation Morphine Sulfate (Morphine) 4 mg IV Q2HP PRN PRN Reason: Pain Last Admin: 01/29/17 20:47 Dose: 4 mg Naloxone HCl (Narcan) 0.1 mg IV Q2MIN PRN PRN Reason: Opiate Reversal Nitroglycerin (Nitrostat) 0.4 mg SL Q5M PRN PRN Reason: Chest Pain Ondansetron HCl (Zofran) 4 mg IV Q4-6HP PRN PRN Reason: Nausea And Vomiting Oxycodone HCl (Roxicodone) 5 mg PO Q6HP PRN PRN Reason: Pain Last Admin: 01/29/17 22:39 Dose: 5 mg Pantoprazole Sodium (Protonix) 40 mg PO QAMAC [facility] Last Admin: 01/30/17 07:52 Dose: 40 mg Potassium Chloride (Kdur) 20 meq PO TIDCC [facility] Last Admin: 01/30/17 08:28 Dose: 20 meq Potassium Chloride (Kdur) 10 meq PO BIDCC [facility] Last Admin: 01/30/17 08:28 Dose: 10 meq Sodium Chloride (Saline Flush) 10 ml IV Q8 [facility] Last Admin: 01/30/17 05:34 Dose: 10 ml Tamsulosin HCl (Flomax) 0.4 mg PO BID [facility] Last Admin: 01/30/17 08:29 Dose: 0.4 mg Tramadol HCl (Ultram) 50 mg PO Q6H PRN PRN Reason: pain Last Admin: 01/29/17 20:48 Dose: 50 mg Medical - PN: A/P - Time Spent With Patient Total time spent is greater than 50% in coordination of care (as documented) at patient's floor/unit and/or counseling patient: 25 - 35 minutes (1) Acute exacerbation of CHF (congestive heart failure) Status: Acute Current Visit: Yes (2) Anasarca Status: Acute Current Visit: Yes (3) LLL pneumonia Status: Acute Current Visit: Yes (4) Elevated troponin Status: Acute Current Visit: Yes (5) NARESH on CPAP Status: Chronic Current Visit: Yes (6) Anemia, chronic renal failure Status: Chronic Current Visit: Yes (7) Body mass index 50.0-59.9, adult Status: Chronic Current Visit: No (8) Chronic kidney disease, stage IV (severe) Status: Chronic Current Visit: No - Narrative A/P Narrative: #1. Cardiac. This patient presents with massive volume overload. It appears he has gained at least 70 pounds since October. He presents with anasarca. Lung exam and chest x-ray are consistent with severe CHF. This is associated with hypoxia. It is interesting that his echo does not show any left ventricular dysfunction. The right ventricle was not able to be fully assessed, and it is possible he has right-sided heart failure and pulmonary hypertension, causing peripheral edema. -Continue to monitor, but okay to transfer to telemetry. Continue Lasix drip, as that may give him a smoother diuresis with less labile blood pressures. So far he is diuresing well. -Continue Capps catheter for accurate intake and output. -Nutrition consult for education regarding low-sodium diet and fluid restriction. -Patient also presents with elevated troponin, without chest pain. My guess is this is related more due to his chronic kidney failure, and this has remained stable. He denies any symptoms. -History of chronic atrial fibrillation. Rate controlled. Continue atenolol. Continue apixaban. -History of hypertension. Controlled. Continue to monitor. 2. Infectious disease. Patient presents with signs and symptoms of left lower lobe pneumonia. He remains afebrile, without significant symptoms. -Cover with IV Rocephin for community-acquired pneumonia, and added clindamycin for possible aspiration. -He seems to be doing well with current treatment. -Continue incentive spirometry. Pulmonary toilet. Albuterol nebs as needed. 3. Renal. Patient has a history of chronic renal disease. BUN and creatinine are slightly elevated above his baseline. Stable today. 4. Status: Patient would like to remain a full code. His daughter, Shahrzad, has his POA. 5. DVT prophylaxis: Continue apixaban. Mobilize as able. 6. Pulmonary -Patient has obstructive sleep apnea. Continue CPAP with oxygen as needed. 7. History of glucose intolerance. Monitor Accu-Cheks and cover with sliding scale insulin if needed. 8. Hematologic. History of chronic, severe anemia. This may be partly dilutional, but also is chronic based on kidney disease, heart failure, and past alcohol abuse. Monitor. Continue vitamin supplements. -He does not give a specific history of coronary artery disease, so we will keep his hemoglobin above 7 at this time. If he develops any worsening symptoms we may transfuse him to a hemoglobin of 8. 9. . Patient has a history of prostate cancer, which was treated last year. He also had a Capps catheter associated urinary tract infection. He was seen last by Dr. Hernandez, but says he does not follow up with him. -The patient did accept Capps catheter placement. #10. Chronic pain. Continue pain meds as needed. I encouraged him to let the nurses know when he was having pain, so they can bring him his as needed meds. He says his pain is better controlled today. #11. For his leg cramping, I added oral potassium and calcium. Magnesium is already at the upper limits of normal. This seems improved today. Approximately 30 minutes was spent today, reviewing patient's test results, interviewing and examining the patient, reviewing plan of care with staff, and writing orders. Medical - PN: Qual - VTE Deep Vein Thrombosis/Pulmonary Embolism Present on Admission: No
[2017-01-30] MEDS: oxyCODONE HCL 5 MG TABLET PO PRN ×2 (12:25→20:31)
[2017-01-30] MEDS ORDERED: DOCUSATE SODIUM 100 MG CAPSULE PO PRN (13:17)
[2017-01-30] MEDS ORDERED: NITROGLYCERIN 0.4 MG TAB.SUBL SL PRN (13:17)
[2017-01-30] MEDS ORDERED: BISACODYL 10 MG SUPP.RECT PR PRN (13:17)
[2017-01-30] MEDS ORDERED: NALOXONE HCL 0.4 MG/ML VIAL IV PRN (13:17)
[2017-01-30] MEDS ORDERED: traMADol 50 MG TABLET PO PRN (13:17)
[2017-01-30] MEDS ORDERED: DEXTROSE 50% 50 ML VIAL IV PRN (13:17)
[2017-01-30] MEDS ORDERED: ACETAMINOPHEN 500 MG TABLET PO PRN (13:17)
[2017-01-30] MEDS ORDERED: MAGNESIUM HYDROXIDE 30 ML ORAL.SUSP PO PRN (13:17)
[2017-01-30] MEDS ORDERED: ONDANSETRON 4 MG/2 ML VIAL IV PRN (13:17)
[2017-01-30] MEDS ORDERED: LACTULOSE 20 GM/30 ML ORAL.SOL PO PRN (13:17)
[2017-01-30] MEDS ORDERED: LORazepam 2 MG/ML VIAL IV PRN (13:17)
[2017-01-31] MEDS: CLINDAMYCIN 300 MG in DEXTROSE 5% IN WATER 50 ML IV SCH ×5 (00:17→23:39)
[2017-01-31] MEDS ORDERED: FUROSEMIDE 40 MG/4 ML VIAL IV ONE ×2 (01:16→01:17)
[2017-01-31] MEDS ORDERED: FUROSEMIDE 20 MG/2 ML VIAL IV ONE (01:18)
[2017-01-31] MEDS: FUROSEMIDE 250 MG in 0.9 % SODIUM CHLORIDE 225 ML IV SCH ×3 (01:23→08:25)
[2017-01-31] MEDS: ALBUTEROL SULFATE 2.5 MG/3 ML NEBULIZER NEB SCH ×4 (01:34→18:40)
[2017-01-31] MEDS: oxyCODONE HCL 5 MG TABLET PO PRN ×3 (02:33→18:24)
[2017-01-31] MEDS ORDERED: FUROSEMIDE 100 MG/10 ML VIAL IV ONE (03:59)
[2017-01-31] MEDS: 0.9 % SODIUM CHLORIDE 10 ML SYRINGE IV SCH ×3 (05:20→22:03)
[2017-01-31 05:37] LABS: Basophils # (Auto) 0 K/mcL (0.0-0.3); Basophils % (Auto) 0.3 % (0.0-2.0); Eosinophils # (Auto) 0.3 K/mcL (0.0-0.7); Eosinophils % (Auto) 7.2 % (0.0-7.0); Granulocytes % (Auto) 67.4 % (38.0-78.0); Lymphocytes # (Auto) 0.4 K/mcL (1.5-4.8); Lymphocytes % (Auto) 9.8 % (15.5-49.0); Mean Cell Volume 93.5 fL (80.0-100.0); Mean Corpuscular Hemoglobin 31.8 pg (26.0-34.0); Monocytes # (Auto) 0.7 K/mcL (0.1-0.9); Monocytes % (Auto) 15.3 % (1.0-12.0); Platelet Count 123 K/mcL (140-440); RBC 2.44 M/mcL (4.50-5.90); Red Cell Distribution Width 16.4 % (11.5-14.5)
[2017-01-31 06:02] LABS: ALT/SGPT 14 U/l (0-40); Albumin/Globulin Ratio 0.7 (1.0-2.3); Alkaline Phosphatase 97 U/L (39-117); Bilirubin,Direct 0.5 mg/dL (0.0-0.3); Blood Urea Nitrogen 39 mg/dl (8-23); Gamma Glutamyl Transpeptidase 66 U/L (8-61); Magnesium 2.4 mg/dL (1.6-2.5); Uric Acid 11.7 mg/dL (2.5-8.0)
[2017-01-31] MEDS: INSULIN LISPRO 1 UNIT/0.01 ML UNIT SQ SCH ×4 (07:56→21:10)
[2017-01-31] MEDS: PANTOPRAZOLE 40 MG TABLET PO SCH (07:56)
[2017-01-31] MEDS: POTASSIUM CHLORIDE 20 MEQ TABLET PO SCH ×3 (08:30→17:25)
[2017-01-31] MEDS: FINASTERIDE 5 MG TABLET PO SCH (08:31)
[2017-01-31] MEDS: ATENOLOL 50 MG TABLET PO SCH (08:31)
[2017-01-31] MEDS: FOLIC ACID 1 MG TABLET PO SCH (08:31)
[2017-01-31] MEDS: APIXABAN 5 MG TABLET PO SCH ×2 (08:31→21:11)
[2017-01-31] MEDS: CALCIUM W/VIT D3 500 MG TABLET PO SCH ×2 (08:31→21:16)
[2017-01-31] MEDS: TAMSULOSIN 0.4 MG CAPSULE PO SCH ×2 (08:31→21:11)
[2017-01-31] MEDS: cefTRIAXone 1 GM in DEXTROSE 5% IN WATER 50 ML IV SCH (10:13)
--- NOTE | 2017-01-31 13:08 | Internal Med Progress Note ---
Medical - PN: Subj Patient information: Note initiated : 01/31/17 at 1:08 pm Patient: Jamarcus Lovelace 66 y/o M admitted on 01/28/17 for Worsening Shortness of Breath/CHF, Pneumonia. Interval history: January 28, 2017: History of present illness: Mr. Lovelace is a 66 year old man with a history of heart failure, chronic kidney disease, atrial fibrillation, sleep apnea, morbid obesity, who apparently moved here from [place] late last year. He was apparently admitted to [facility] in July of this year with urosepsis. His daughter says that he was also admitted here in October with sepsis related to UTI, acute renal failure. She believes that at the time of discharge he weighed around 324 pounds. He has since been living at [facility], and her understanding is that his weight has crept back up to 417 pounds. The patient notes that he has been feeling more short of breath over the last week or so. He has noticed increased cough, which is been nonproductive. He denies associated fever or chills. He has been noticing increased abdominal swelling lately, and also fluid leaking from his skin. He says he occasionally feels a little dizzy, but denies chest pain. He is experiencing orthopnea when he lays down, so for the last couple of weeks he has been sleeping in his recliner. He finally presented to the emergency room today with the symptoms. ER evaluation showed worsening renal function, elevated BNP, hypoxia on room air , and likely new left lower lobe infiltrate. Troponin is also moderately elevated, but he also has chronic kidney disease. He is also quite anemic, but it looks like H and H have been stable since October. Otherwise, the patient denies fever or chills, new eye or ear symptoms, sore throat. He has moderate dyspnea with exertion. He denies abdominal pain, nausea or vomiting, diarrhea or constipation. He denies significant dysuria. His daughter feels that he is eating healthier and write more regular meals since being admitted to [place], but she says he does keep snacks in his room and she believes he snacks between meals. He does not weigh daily or keep a weight diary. 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 He does not follow a fluid restricted diet or a sodium restricted diet. January 29: Today, the patient states he is having some cramping, mainly in his left thigh area. He says he has a little dyspnea when he tries to lay down, but denies significant dyspnea when he got out of bed to use the bedside commode today. He also has various aches and pains due to his arthritis pain in his shoulders and hips, etc. Otherwise, he denies fever or chills, dizziness, chest pain or palpitations, abdominal pain, nausea or vomiting, diarrhea or constipation. Capps catheter remains in place, and he says he is tolerating that quite well. January 30: Today, the patient says he is feeling better he thinks. He still has mild orthopnea, but denies less shortness of breath otherwise. He denies fever or chills, significant cough, chest pain or palpitations, abdominal pain, nausea or vomiting, diarrhea or constipation. He continues to have severe edema of his lower extremities and abdomen, but this does not seem to bother him. -He does not report leg cramps today. -He is tolerating his Capps catheter just fine so far. -he remains in atrial fibrillation, with well-controlled rate. -He remains afebrile, and in spite of pneumonia on his chest x-ray. White blood cell count continues below normal. -He sleeps fine with his CPAP at night. During the day, he is sleeping on and off. He does not drop his saturations too much as long as he keeps his oxygen on. January 31: Today, the patient notes he is feeling pretty well. He is still requiring 2 or 3 person assist to get out of bed, but once he is pulled up, can walk over to his chair. He continues to have mild orthopnea and mild dyspnea with exertion. He continues to have a cough that is mostly nonproductive. Otherwise, he denies fever chills, headaches or dizziness, chest pain or palpitations, abdominal pain, nausea or vomiting, diarrhea or constipation. He continues to tolerate the Capps catheter quite well. - Constitutional Vitals: Vital Signs Temp Pulse Resp BP Pulse Ox 97.9 F 70 20 113/66 96 01/31/17 12:00 01/31/17 06:47 01/31/17 12:00 01/31/17 12:00 01/31/17 12:00 Period Temp Pulse Resp BP Sys/Siegel Pulse Ox Last 24 Hr 97.1 F-98.7 F 65-70 16-20 108-134/57-72 92-100 Intake and Output 01/30/17 01/31/17 01/31/17 21:59 05:59 13:59 Intake Total 1292 / 1292 1092 / 1092 639 / 639 Output Total 960 / 960 1175 / 1175 620 / 620 Balance 332 / 332 -83 / -83 Weight 425 lb 6.4 oz Intake & Output: Intake & Output 01/30/17 01/31/17 01/31/17 21:59 05:59 13:59 Intake Total 1292 / 1292 1092 / 1092 639 / 639 Output Total 960 / 960 1175 / 1175 620 / 620 Balance 332 / 332 -83 / -83 Weight 425 lb 6.4 oz Intake: IV 402 / 402 792 / 792 259 / 259 Cleocin 300 mg In 52 / 52 104 / 104 Dextrose 5% in Water 50 ml @ 100 mls/hr IV Q6H YELE[facility] Rx#:[id number] Lasix 250 mg In Sodium 350 / 350 688 / 688 209 / 209 Chloride 0.9% 225 ml @ 0. 2 MG/KG/HR 37.46 mls/hr IV Q6H YELENA Rx#:[id number] Rocephin 1 gm In Dextrose 50 / 50 5% in Water 50 ml @ 100 mls/hr IV Q24H YELENA Rx#: [id number] Oral 890 / 890 300 / 300 380 / 380 Output: Urine Catheter Amount 820 / 820 1175 / 1175 620 / 620 Void Amount 140 / 140 Other: Meal Dinner Breakfast Percent of Meal Consumed 100% 100% Feeding Ability Assist with Tray Set Up Assist with Tray Set Up On exam, he is in no acute distress. Neck is supple without obvious lymphadenopathy. Cardiac exam shows a slightly irregular rhythm, with 2/6 systolic ejection murmur. Lungs show fairly diffuse crackles and wheezes throughout both lung dukes. Abdomen is obese, with significant abdominal wall edema. This does seem a little less tense than yesterday. There is no significant tenderness. Extremities: Show greater than 4+ edema up to the abdomen. Again this seems mildly improved compared to yesterday. Neurologic exam: Is grossly nonfocal. Medical - PN: Obj Da - Labs CBC & Chem 7: 01/31/17 04:19 01/31/17 04:19 Labs: Abnormal Lab Results 01/31/17 01/31/17 01/30/17 04:19 04:19 04:10 WBC 4.3 L 4.3 L RBC 2.44 L 2.45 L Hgb 7.8 L 7.9 L Hct 22.8 L 23.0 L RDW 16.4 H 16.0 H Plt Count 123 L Lymph % (Auto) 9.8 L 9.3 L [place] % (Auto) 15.3 H 14.0 H Eos % (Auto) 7.2 H 7.4 H Lymph # (Auto) 0.4 L 0.4 L Chloride BUN 39 H Creatinine 2.0 H Uric Acid 11.7 H Calcium 8.4 L Phosphorus Total Bilirubin 1.3 H Direct Bilirubin 0.5 H GGT 66 H Lactate Dehydrogenase Troponin T Albumin 3.0 L Globulin 4.3 H Albumin/Globulin Ratio 0.7 L 01/30/17 01/29/17 01/29/17 04:10 03:55 03:55 WBC 3.2 L RBC 2.46 L Hgb 7.9 L Hct 23.1 L RDW 15.6 H Plt Count Lymph % (Auto) 13.5 L [place] % (Auto) 12.7 H Eos % (Auto) Lymph # (Auto) 0.4 L Chloride 95 L BUN 38 H 38 H Creatinine 2.0 H 2.0 H Uric Acid 11.9 H 12.2 H Calcium 8.5 L Phosphorus 4.7 H Total Bilirubin 1.4 H 1.5 H Direct Bilirubin 0.5 H 0.5 H GGT 66 H 64 H Lactate Dehydrogenase 259 H Troponin T Albumin 3.1 L 3.0 L Globulin 4.3 H 4.3 H Albumin/Globulin Ratio 0.7 L 0.7 L 01/29/17 01/28/17 03:55 20:05 WBC RBC Hgb Hct RDW Plt Count Lymph % (Auto) [place] % (Auto) Eos % (Auto) Lymph # (Auto) Chloride BUN Creatinine Uric Acid Calcium Phosphorus Total Bilirubin Direct Bilirubin GGT Lactate Dehydrogenase Troponin T 0.10 H* 0.10 H* Albumin Globulin Albumin/Globulin Ratio January 31: Intake and output balance is now -2200 since admission. Weight appears increased, but I suspect they are weighing him on a different scale now as he had to change beds. January 29: He has diuresed about 2200 mL so far. Echocardiogram: Shows moderate concentric LVH, mildly dilated left ventricle, with normal systolic function, LVEF of 65%. Moderately dilated left and right atrium. Mild mitral regurg. Unable to assess right ventricular systolic pressures. EKG: Shows atrial fibrillation at a rate of 70. Possible old anteroseptal ME. Chest x-ray: Shows persistent cardiomegaly, pulmonary vascular congestion, left basilar pneumonia with effusion. No significant change. January 28: CBC shows white blood cell count of 3600, hemoglobin 8.2, hematocrit 24, RDW 15.6. Absolute granulocyte count normal at 2400. Absolute lymphocyte count low at 500. Lactic acid is normal at 2.1 Chemistry panel: Sodium 135, potassium 4.3, chloride 94, BUN 39, creatinine 2.1 , glucose 127, total bilirubin 1.5 Albumin is low at 2.8, globulin elevated at 4.8 MRSA screen is negative. Troponin elevated at 0.10 BNP elevated at 1491 EKG: Shows atrial fibrillation at a rate of about 75. Slow R-wave progression, low voltage, diffusely flattened T waves. Chest x-ray shows pulmonary vascular congestion, which may be stable. Also left basilar infiltrate and probable left pleural effusion, consistent with pneumonia. Meds: Medications Acetaminophen (Tylenol) 500 mg PO Q8HP PRN PRN Reason: pain Albuterol Sulfate (Ventolin) 2.5 mg NEB Q6HRT [facility] Last Admin: 01/31/17 06:45 Dose: 2.5 mg Atenolol (Tenormin) 50 mg PO QDAY [facility] Last Admin: 01/31/17 08:31 Dose: 50 mg Bisacodyl (Dulcolax) 10 mg NM ONCE PRN PRN Reason: Constipation Calcium/Vitamin D (Calcium W/Vit D3) 500 mg PO BID [facility] Last Admin: 01/31/17 08:31 Dose: 500 mg Dextrose (Dextrose 50%) 0 ml IV UD PRN PRN Reason: Hypoglycemia Diagnostic Test (Pha) (Accu-Chek) 1 each FS ACHS [facility] Last Admin: 01/31/17 12:18 Dose: 1 each Docusate Sodium (Colace) 100 mg PO BID PRN PRN Reason: Constipation Finasteride (Proscar) 5 mg PO QDAY [facility] Last Admin: 01/31/17 08:31 Dose: 5 mg Folic Acid (Folic Acid) 2 mg PO QDAY [facility] Last Admin: 01/31/17 08:31 Dose: 2 mg Furosemide (Lasix) 80 mg IV Q8HP PRN PRN Reason: Edema Ceftriaxone Sodium 1 gm/ (Dextrose) 50 mls @ 100 mls/hr IV Q24H [facility] Last Infusion: 01/31/17 10:54 Dose: Infused Clindamycin Phosphate 300 mg/ (Dextrose) 52 mls @ 100 mls/hr IV Q6H [facility] Last Admin: 01/31/17 12:19 Dose: 100 mls/hr Insulin Human Lispro (Humalog) 0 unit SQ ACHS [facility] PRN Reason: Protocol Last Admin: 01/31/17 12:19 Dose: Not Given Lactulose (Cephulac) 20 gm PO TID PRN PRN Reason: Constipation Lorazepam (Ativan) 0.5 mg IV Q2HP PRN PRN Reason: ANXIETY/SEDATION Magnesium Hydroxide (Milk Of Magnesia) 30 ml PO DAILYP PRN PRN Reason: Constipation Morphine Sulfate (Morphine) 4 mg IV Q2HP PRN PRN Reason: Pain Naloxone HCl (Narcan) 0.1 mg IV Q2MIN PRN PRN Reason: Opiate Reversal Nitroglycerin (Nitrostat) 0.4 mg SL Q5M PRN PRN Reason: Chest Pain Ondansetron HCl (Zofran) 4 mg IV Q4-6HP PRN PRN Reason: Nausea And Vomiting Oxycodone HCl (Roxicodone) 5 mg PO Q6HP PRN PRN Reason: Pain Last Admin: 01/31/17 10:53 Dose: 5 mg Pantoprazole Sodium (Protonix) 40 mg PO QAMAC [facility] Last Admin: 01/31/17 07:56 Dose: 40 mg Potassium Chloride (Kdur) 20 meq PO TIDCC [facility] Last Admin: 01/31/17 12:20 Dose: 20 meq Sodium Chloride (Saline Flush) 10 ml IV Q8 [facility] Last Admin: 01/31/17 05:20 Dose: 10 ml Tamsulosin HCl (Flomax) 0.4 mg PO BID [facility] Last Admin: 01/31/17 08:31 Dose: 0.4 mg Tramadol HCl (Ultram) 50 mg PO Q6H PRN PRN Reason: pain Medical - PN: A/P - Time Spent With Patient Total time spent is greater than 50% in coordination of care (as documented) at patient's floor/unit and/or counseling patient: (1) Acute exacerbation of CHF (congestive heart failure) Status: Acute Current Visit: Yes (2) Anasarca Status: Acute Current Visit: Yes (3) LLL pneumonia Status: Acute Current Visit: Yes (4) Elevated troponin Status: Acute Current Visit: Yes (5) NARESH on CPAP Status: Chronic Current Visit: Yes (6) Anemia, chronic renal failure Status: Chronic Current Visit: Yes (7) Body mass index 50.0-59.9, adult Status: Chronic Current Visit: No (8) Chronic kidney disease, stage IV (severe) Status: Chronic Current Visit: No - Narrative A/P Narrative: #1. Cardiac. This patient presents with massive volume overload. It appears he has gained at least 70 pounds since October. He presents with anasarca. Lung exam and chest x-ray are consistent with severe CHF. This is associated with hypoxia. It is interesting that his echo does not show any left ventricular dysfunction. The right ventricle was not able to be fully assessed, and it is possible he has right-sided heart failure and pulmonary hypertension, causing peripheral edema. -Continue to monitor. Diuresis seems to be slowing down, and the patient is drinking more fluid than he should. We will place him on a fluid restriction today. Lasix drip does not seem to be that effective, so I have changed him back to IV Lasix every 8 hours as needed to keep urine output greater than intake. -Continue Capps catheter for accurate intake and output. -Nutrition consult for education regarding low-sodium diet and fluid restriction. -Patient also presents with elevated troponin, without chest pain. My guess is this is related more due to his chronic kidney failure, and this has remained stable. He denies any symptoms. -History of chronic atrial fibrillation. Rate controlled. Continue atenolol. Continue apixaban. -History of hypertension. Controlled. Continue to monitor. 2. Infectious disease. Patient presents with signs and symptoms of left lower lobe pneumonia. He remains afebrile, without significant symptoms. -Cover with IV Rocephin for community-acquired pneumonia, and added clindamycin for possible aspiration. -He seems to be doing well with current treatment. -Continue incentive spirometry. Pulmonary toilet. Albuterol nebs as needed. 3. Renal. Patient has a history of chronic renal disease. BUN and creatinine are slightly elevated above his baseline. Stable today. 4. Status: Patient would like to remain a full code. His daughter, Shahrzad, has his POA. 5. DVT prophylaxis: Continue apixaban. Mobilize as able. 6. Pulmonary -Patient has obstructive sleep apnea. Continue CPAP with oxygen as needed. 7. History of glucose intolerance. Monitor Accu-Cheks and cover with sliding scale insulin if needed. 8. Hematologic. History of chronic, severe anemia. This may be partly dilutional, but also is chronic based on kidney disease, heart failure, and past alcohol abuse. Monitor. Continue vitamin supplements. -He does not give a specific history of coronary artery disease, so we will keep his hemoglobin above 7 at this time. If he develops any worsening symptoms we may transfuse him to a hemoglobin of 8. 9. . Patient has a history of prostate cancer, which was treated last year. He also had a Capps catheter associated urinary tract infection. He was seen last by Dr. Hernandez, but says he does not follow up with him. -The patient did accept Capps catheter placement. #10. Chronic pain. Continue pain meds as needed. I encouraged him to let the nurses know when he was having pain, so they can bring him his as needed meds. He says his pain is better controlled today. #11. For his leg cramping, I added oral potassium and calcium. Magnesium is already at the upper limits of normal. This seems improved today. Approximately 30 minutes was spent today, reviewing patient's test results, interviewing and examining the patient, reviewing plan of care with staff and , and writing orders. Medical - PN: Qual - VTE Deep Vein Thrombosis/Pulmonary Embolism Present on Admission: No
[2017-01-31] MEDS ORDERED: FUROSEMIDE 100 MG/10 ML VIAL IV PRN (14:00)
[2017-01-31] MEDS: METOLAZONE 2.5 MG TABLET PO PRN (18:36)
[2017-01-31] MEDS: BUMETANIDE 0.25 MG/ML VIAL IV PRN (19:32)
[2017-02-01] MEDS: ALBUTEROL SULFATE 2.5 MG/3 ML NEBULIZER NEB SCH ×4 (01:13→19:28)
[2017-02-01] MEDS: 0.9 % SODIUM CHLORIDE 10 ML SYRINGE IV SCH ×3 (05:33→21:43)
[2017-02-01] MEDS: CLINDAMYCIN 300 MG in DEXTROSE 5% IN WATER 50 ML IV SCH ×3 (05:33→18:07)
[2017-02-01 06:12] LABS: Basophils # (Auto) 0 K/mcL (0.0-0.3); Basophils % (Auto) 0.6 % (0.0-2.0); Eosinophils # (Auto) 0.4 K/mcL (0.0-0.7); Eosinophils % (Auto) 10.2 % (0.0-7.0); Granulocytes % (Auto) 62.4 % (38.0-78.0); Lymphocytes # (Auto) 0.4 K/mcL (1.5-4.8); Lymphocytes % (Auto) 11.3 % (15.5-49.0); Mean Cell Volume 93.7 fL (80.0-100.0); Mean Corpuscular HGB Conc 33.7 g/dL (31.0-36.0); Mean Corpuscular Hemoglobin 31.5 pg (26.0-34.0); Monocytes # (Auto) 0.6 K/mcL (0.1-0.9); Monocytes % (Auto) 15.5 % (1.0-12.0); Platelet Count 114 K/mcL (140-440); RBC 2.51 M/mcL (4.50-5.90)
[2017-02-01 06:40] LABS: ALT/SGPT 14 U/l (0-40); Albumin 2.9 gm/dL (3.2-5.2); Albumin/Globulin Ratio 0.6 (1.0-2.3); Alkaline Phosphatase 96 U/L (39-117); Bilirubin,Direct 0.4 mg/dL (0.0-0.3); Blood Urea Nitrogen 33 mg/dl (8-23); Gamma Glutamyl Transpeptidase 66 U/L (8-61); Magnesium 2.4 mg/dL (1.6-2.5); Uric Acid 11.9 mg/dL (2.5-8.0)
[2017-02-01] MEDS: INSULIN LISPRO 1 UNIT/0.01 ML UNIT SQ SCH ×3 (10:11→18:06)
[2017-02-01] MEDS: POTASSIUM CHLORIDE 20 MEQ TABLET PO SCH ×3 (10:12→18:07)
[2017-02-01] MEDS: CALCIUM W/VIT D3 500 MG TABLET PO SCH ×2 (10:12→21:42)
[2017-02-01] MEDS: PANTOPRAZOLE 40 MG TABLET PO SCH (10:12)
[2017-02-01] MEDS: TAMSULOSIN 0.4 MG CAPSULE PO SCH ×2 (10:12→21:42)
[2017-02-01] MEDS: FINASTERIDE 5 MG TABLET PO SCH (10:12)
[2017-02-01] MEDS: ATENOLOL 50 MG TABLET PO SCH (10:12)
[2017-02-01] MEDS: APIXABAN 5 MG TABLET PO SCH ×2 (10:12→21:43)
[2017-02-01] MEDS: FOLIC ACID 1 MG TABLET PO SCH (10:13)
[2017-02-01] MEDS: cefTRIAXone 1 GM in DEXTROSE 5% IN WATER 50 ML IV SCH (10:13)
--- NOTE | 2017-02-01 11:19 | Internal Med Progress Note ---
Medical - PN: Subj Patient information: Note initiated : 02/01/17 at 11:19 am Service Date, if different from initiated Date: [] Patient: Jamarcus Lovelace 66 y/o M admitted on 01/28/17 for Worsening Shortness of Breath/CHF, Pneumonia. Chief Complaint: [] Interval history: January 28, 2017: History of present illness: Mr. Lovelace is a 66 year old man with a history of heart failure, chronic kidney disease, atrial fibrillation, sleep apnea, morbid obesity, who apparently moved here from [place] late last year. He was apparently admitted to [facility] in July of this year with urosepsis. His daughter says that he was also admitted here in October with sepsis related to UTI, acute renal failure. She believes that at the time of discharge he weighed around 324 pounds. He has since been living at [facility], and her understanding is that his weight has crept back up to 417 pounds. The patient notes that he has been feeling more short of breath over the last week or so. He has noticed increased cough, which is been nonproductive. He denies associated fever or chills. He has been noticing increased abdominal swelling lately, and also fluid leaking from his skin. He says he occasionally feels a little dizzy, but denies chest pain. He is experiencing orthopnea when he lays down, so for the last couple of weeks he has been sleeping in his recliner. He finally presented to the emergency room today with the symptoms. ER evaluation showed worsening renal function, elevated BNP, hypoxia on room air , and likely new left lower lobe infiltrate. Troponin is also moderately elevated, but he also has chronic kidney disease. He is also quite anemic, but it looks like H and H have been stable since October. Otherwise, the patient denies fever or chills, new eye or ear symptoms, sore throat. He has moderate dyspnea with exertion. He denies abdominal pain, nausea or vomiting, diarrhea or constipation. He denies significant dysuria. His daughter feels that he is eating healthier and write more regular meals since being admitted to [place], but she says he does keep snacks in his room and she believes he snacks between meals. He does not weigh daily or keep a weight diary. He does not have a oil analyst. He does not follow a fluid restricted diet or a sodium restricted diet. January 29: Today, the patient states he is having some cramping, mainly in his left thigh area. He says he has a little dyspnea when he tries to lay down, but denies significant dyspnea when he got out of bed to use the bedside commode today. He also has various aches and pains due to his arthritis pain in his shoulders and hips, etc. Otherwise, he denies fever or chills, dizziness, chest pain or palpitations, abdominal pain, nausea or vomiting, diarrhea or constipation. Capps catheter remains in place, and he says he is tolerating that quite well. January 30: Today, the patient says he is feeling better he thinks. He still has mild orthopnea, but denies less shortness of breath otherwise. He denies fever or chills, significant cough, chest pain or palpitations, abdominal pain, nausea or vomiting, diarrhea or constipation. He continues to have severe edema of his lower extremities and abdomen, but this does not seem to bother him. -He does not report leg cramps today. -He is tolerating his Capps catheter just fine so far. -he remains in atrial fibrillation, with well-controlled rate. -He remains afebrile, and in spite of pneumonia on his chest x-ray. White blood cell count continues below normal. -He sleeps fine with his CPAP at night. During the day, he is sleeping on and off. He does not drop his saturations too much as long as he keeps his oxygen on. January 31: Today, the patient notes he is feeling pretty well. He is still requiring 2 or 3 person assist to get out of bed, but once he is pulled up, can walk over to his chair. He continues to have mild orthopnea and mild dyspnea with exertion. He continues to have a cough that is mostly nonproductive. Otherwise, he denies fever chills, headaches or dizziness, chest pain or palpitations, abdominal pain, nausea or vomiting, diarrhea or constipation. He continues to tolerate the Capps catheter quite well. February 01: Today, the patient says he is feeling fairly well. Nurses note that he is having less orthopnea than he was before, and has been able to lie nearly flat for bathing etc. Unfortunately, they could not get him out of bed today. The nurse and the physical therapist could not give him enough assistance to help him stand up from the bed. He just feels too weak. Otherwise, he denies fever or chills, chest pain or palpitations or shortness of breath. He denies abdominal pain, nausea or vomiting, diarrhea or constipation. He continues to tolerate the Capps catheter just fine. -I now have him on a regimen of q. 8 hour IV diuretics, for any 8 hour period where he is not diuresing at least 300 mL. This worked well overnight. He has now diuresed about 4800 mL since admission. - Constitutional Vitals: Vital Signs Temp Pulse Resp BP Pulse Ox 96.5 F L 84 16 148/67 93 02/01/17 07:35 02/01/17 07:01 02/01/17 07:35 02/01/17 07:35 02/01/17 07:35 Period Temp Pulse Resp BP Sys/Siegel Pulse Ox Last 24 Hr 96.5 F-98.3 F 68-84 16-20 113-148/66-79 93-96 Intake and Output 01/31/17 02/01/17 02/01/17 21:59 05:59 13:59 Intake Total 104 / 104 52 / 52 Output Total 635 / 635 1600 / 1600 1260 / 1260 Balance -531 / -531 -1548 / -1548 -1260 / -1260 Weight 414 lb 3.2 oz Intake & Output: Intake & Output 01/31/17 02/01/17 02/01/17 21:59 05:59 13:59 Intake Total 104 / 104 52 / 52 Output Total 635 / 635 1600 / 1600 1260 / 1260 Balance -531 / -531 -1548 / -1548 -1260 / -1260 Weight 414 lb 3.2 oz Intake: IV / 104 52 / 52 Cleocin 300 mg In 104 / 104 52 / 52 Dextrose 5% in Water 50 ml @ 100 mls/hr IV Q6H [facility] Rx#:[id number] Output: Urine Catheter Amount 635 / 635 1600 / 1600 1260 / 1260 Other: Meal Breakfast Percent of Meal Consumed 100% Feeding Ability Independent On exam, he is in no acute distress. Neck is supple without obvious lymphadenopathy. Cardiac exam shows a slightly irregular rhythm, with 2/6 systolic ejection murmur. Lungs show decreased crackles and wheezes throughout both lung dukes. This is quite an improvement over yesterday. Abdomen is obese, with significant abdominal wall edema. This is definitely less tense than yesterday. There is no significant tenderness. He does have fairly significant scrotal edema. Extremities: Show greater than 4+ edema up to the abdomen. Again this seems mildly improved compared to yesterday. Neurologic exam: Is grossly nonfocal. Medical - PN: Obj Da - Labs CBC & Chem 7: 02/01/17 04:40 02/01/17 04:40 Labs: Abnormal Lab Results 02/01/17 02/01/17 01/31/17 04:40 04:40 04:19 WBC 3.8 L 4.3 L RBC 2.51 L 2.44 L Hgb 7.9 L 7.8 L Hct 23.5 L 22.8 L RDW 16.0 H 16.4 H Plt Count 114 L 123 L Lymph % (Auto) 11.3 L 9.8 L [place] % (Auto) 15.5 H 15.3 H Eos % (Auto) 10.2 H 7.2 H Lymph # (Auto) 0.4 L 0.4 L Chloride BUN 33 H Creatinine 1.8 H Uric Acid 11.9 H Calcium 8.3 L Total Bilirubin 1.3 H Direct Bilirubin 0.4 H GGT 66 H AST 44 H Lactate Dehydrogenase 315 H Albumin 2.9 L Globulin 4.5 H Albumin/Globulin Ratio 0.6 L 01/31/17 01/30/17 01/30/17 04:19 04:10 04:10 WBC 4.3 L RBC 2.45 L Hgb 7.9 L Hct 23.0 L RDW 16.0 H Plt Count Lymph % (Auto) 9.3 L [place] % (Auto) 14.0 H Eos % (Auto) 7.4 H Lymph # (Auto) 0.4 L Chloride 95 L BUN 39 H 38 H Creatinine 2.0 H 2.0 H Uric Acid 11.7 H 11.9 H Calcium 8.4 L Total Bilirubin 1.3 H 1.4 H Direct Bilirubin 0.5 H 0.5 H GGT 66 H 66 H AST Lactate Dehydrogenase 259 H Albumin 3.0 L 3.1 L Globulin 4.3 H 4.3 H Albumin/Globulin Ratio 0.7 L 0.7 L February 01: -He has now diuresed about 4800 mL since admission January 31: Intake and output balance is now -2200 since admission. Weight appears increased, but I suspect they are weighing him on a different scale now as he had to change beds. January 29: He has diuresed about 2200 mL so far. Echocardiogram: Shows moderate concentric LVH, mildly dilated left ventricle, with normal systolic function, LVEF of 65%. Moderately dilated left and right atrium. Mild mitral regurg. Unable to assess right ventricular systolic pressures. EKG: Shows atrial fibrillation at a rate of 70. Possible old anteroseptal GA. Chest x-ray: Shows persistent cardiomegaly, pulmonary vascular congestion, left basilar pneumonia with effusion. No significant change. January 28: CBC shows white blood cell count of 3600, hemoglobin 8.2, hematocrit 24, RDW 15.6. Absolute granulocyte count normal at 2400. Absolute lymphocyte count low at 500. Lactic acid is normal at 2.1 Chemistry panel: Sodium 135, potassium 4.3, chloride 94, BUN 39, creatinine 2.1 , glucose 127, total bilirubin 1.5 Albumin is low at 2.8, globulin elevated at 4.8 MRSA screen is negative. Troponin elevated at 0.10 BNP elevated at 1491 EKG: Shows atrial fibrillation at a rate of about 75. Slow R-wave progression, low voltage, diffusely flattened T waves. Chest x-ray shows pulmonary vascular congestion, which may be stable. Also left basilar infiltrate and probable left pleural effusion, consistent with pneumonia. Meds: Medications Acetaminophen (Tylenol) 500 mg PO Q8HP PRN PRN Reason: pain Last Admin: 01/31/17 16:19 Dose: 500 mg Albuterol Sulfate (Ventolin) 2.5 mg NEB Q6HRT [facility] Last Admin: 02/01/17 06:55 Dose: 2.5 mg Atenolol (Tenormin) 50 mg PO QDAY [facility] Last Admin: 02/01/17 10:12 Dose: 50 mg Bisacodyl (Dulcolax) 10 mg PA ONCE PRN PRN Reason: Constipation Bumetanide (Bumex) 1 mg IV Q8HP PRN PRN Reason: Edema Last Admin: 01/31/17 19:32 Dose: 1 mg Calcium/Vitamin D (Calcium W/Vit D3) 500 mg PO BID [facility] Last Admin: 02/01/17 10:12 Dose: 500 mg Dextrose (Dextrose 50%) 0 ml IV UD PRN PRN Reason: Hypoglycemia Diagnostic Test (Pha) (Accu-Chek) 1 each FS ACHS [facility] Last Admin: 02/01/17 10:11 Dose: 1 each Docusate Sodium (Colace) 100 mg PO BID PRN PRN Reason: Constipation Finasteride (Proscar) 5 mg PO QDAY [facility] Last Admin: 02/01/17 10:12 Dose: 5 mg Folic Acid (Folic Acid) 2 mg PO QDAY [facility] Last Admin: 02/01/17 10:13 Dose: 2 mg Ceftriaxone Sodium 1 gm/ (Dextrose) 50 mls @ 100 mls/hr IV Q24H [facility] Last Admin: 02/01/17 10:13 Dose: 100 mls/hr Clindamycin Phosphate 300 mg/ (Dextrose) 52 mls @ 100 mls/hr IV Q6H [facility] Last Admin: 02/01/17 05:33 Dose: 100 mls/hr Insulin Human Lispro (Humalog) 0 unit SQ [facility] PRN Reason: Protocol Last Admin: 02/01/17 10:11 Dose: Not Given Lactulose (Cephulac) 20 gm PO TID PRN PRN Reason: Constipation Lorazepam (Ativan) 0.5 mg IV Q2HP PRN PRN Reason: ANXIETY/SEDATION Magnesium Hydroxide (Milk Of Magnesia) 30 ml PO DAILYP PRN PRN Reason: Constipation Last Admin: 01/31/17 16:19 Dose: 30 ml Metolazone (Zaroxolyn) 2.5 mg PO Q8HP PRN PRN Reason: Edema Last Admin: 01/31/17 18:36 Dose: 2.5 mg Morphine Sulfate (Morphine) 4 mg IV Q2HP PRN PRN Reason: Pain Naloxone HCl (Narcan) 0.1 mg IV Q2MIN PRN PRN Reason: Opiate Reversal Nitroglycerin (Nitrostat) 0.4 mg SL Q5M PRN PRN Reason: Chest Pain Ondansetron HCl (Zofran) 4 mg IV Q4-6HP PRN PRN Reason: Nausea And Vomiting Oxycodone HCl (Roxicodone) 5 mg PO Q6HP PRN PRN Reason: Pain Last Admin: 01/31/17 18:24 Dose: 5 mg Pantoprazole Sodium (Protonix) 40 mg PO QAMAC [facility] Last Admin: 02/01/17 10:12 Dose: 40 mg Potassium Chloride (Kdur) 20 meq PO TIDCC [facility] Last Admin: 02/01/17 10:12 Dose: 20 meq Sodium Chloride (Saline Flush) 10 ml IV Q8 [facility] Last Admin: 02/01/17 05:33 Dose: 10 ml Tamsulosin HCl (Flomax) 0.4 mg PO BID [facility] Last Admin: 02/01/17 10:12 Dose: 0.4 mg Tramadol HCl (Ultram) 50 mg PO Q6H PRN PRN Reason: pain Medical - PN: A/P - Time Spent With Patient Total time spent is greater than 50% in coordination of care (as documented) at patient's floor/unit and/or counseling patient: (1) Acute exacerbation of CHF (congestive heart failure) Status: Acute Current Visit: Yes (2) Anasarca Status: Acute Current Visit: Yes (3) LLL pneumonia Status: Acute Current Visit: Yes (4) Elevated troponin Status: Acute Current Visit: Yes (5) NARESH on CPAP Status: Chronic Current Visit: Yes (6) Anemia, chronic renal failure Status: Chronic Current Visit: Yes (7) Body mass index 50.0-59.9, adult Status: Chronic Current Visit: No (8) Chronic kidney disease, stage IV (severe) Status: Chronic Current Visit: No - Narrative A/P Narrative: #1. Cardiac. This patient presents with massive volume overload. It appears he has gained at least 70 pounds since October. He presents with anasarca. Lung exam and chest x-ray are consistent with severe CHF. This is associated with hypoxia. It is interesting that his echo does not show any left ventricular dysfunction. The right ventricle was not able to be fully assessed, and it is possible he has right-sided heart failure and pulmonary hypertension, causing peripheral edema. -Continue to monitor. -Diuresis is improving now with every 8 hour IV diuretics, plus fluid restriction.. -Continue Capps catheter for accurate intake and output. -Nutrition consult for education regarding low-sodium diet and fluid restriction. -Patient also presents with elevated troponin, without chest pain. My guess is this is related more due to his chronic kidney failure, and this has remained stable. He denies any symptoms. -History of chronic atrial fibrillation. Rate controlled. Continue atenolol. Continue apixaban. -History of hypertension. Controlled. Continue to monitor. 2. Infectious disease. Patient presents with signs and symptoms of left lower lobe pneumonia. He remains afebrile, without significant symptoms. -Cover with IV Rocephin for community-acquired pneumonia, and added clindamycin for possible aspiration. -He seems to be doing well with current treatment. -Continue incentive spirometry. Pulmonary toilet. Albuterol nebs as needed. 3. Renal. Patient has a history of chronic renal disease. BUN and creatinine are slightly elevated above his baseline, but actually look a little improved today. 4. Status: Patient would like to remain a full code. His daughter, Shahrzad, has his POA. 5. DVT prophylaxis: Continue apixaban. Mobilize as able. 6. Pulmonary -Patient has obstructive sleep apnea. Continue CPAP with oxygen as needed. 7. History of glucose intolerance. Accu-Cheks have been fine, so will be discontinued. 8. Hematologic. History of chronic, severe anemia. This may be partly dilutional, but also is chronic based on kidney disease, heart failure, and past alcohol abuse. Monitor. Continue vitamin supplements. -He does not give a specific history of coronary artery disease, so we will keep his hemoglobin above 7 at this time. If he develops any worsening symptoms we may transfuse him to a hemoglobin of 8. -Today, he looks pancytopenic. White blood cell count, red blood cell counts, and platelets are all on the low side. He may have an underlying myelodysplastic disorder. Continue to follow. 9. . Patient has a history of prostate cancer, which was treated last year. He also had a Capps catheter associated urinary tract infection. He was seen last by Dr. Hernandez, but says he does not follow up with him. -The patient did accept Capps catheter placement. #10. Chronic pain. Continue pain meds as needed. I encouraged him to let the nurses know when he was having pain, so they can bring him his as needed meds. He says his pain is better controlled today. #11. For his leg cramping, I added oral potassium and calcium. Magnesium is already at the upper limits of normal. This seems improved . #12. GI. LFTs are borderline elevated. Continue to monitor. Approximately 30 minutes was spent today, reviewing patient's test results, interviewing and examining the patient, reviewing plan of care with staff and , and writing orders. Medical - PN: Qual - VTE Deep Vein Thrombosis/Pulmonary Embolism Present on Admission: No
[2017-02-01] MEDS: oxyCODONE HCL 5 MG TABLET PO PRN ×2 (14:13→21:42)
[2017-02-02] MEDS: CLINDAMYCIN 300 MG in DEXTROSE 5% IN WATER 50 ML IV SCH ×5 (00:11→23:45)
[2017-02-02] MEDS: ALBUTEROL SULFATE 2.5 MG/3 ML NEBULIZER NEB SCH ×4 (02:03→19:46)
[2017-02-02] MEDS: oxyCODONE HCL 5 MG TABLET PO PRN ×3 (05:43→20:32)
[2017-02-02] MEDS: 0.9 % SODIUM CHLORIDE 10 ML SYRINGE IV SCH ×3 (05:43→22:03)
[2017-02-02 05:45] LABS: Basophils # (Auto) 0 K/mcL (0.0-0.3); Basophils % (Auto) 0.5 % (0.0-2.0); Eosinophils # (Auto) 0.3 K/mcL (0.0-0.7); Eosinophils % (Auto) 9.2 % (0.0-7.0); Granulocytes % (Auto) 62.7 % (38.0-78.0); Lymphocytes # (Auto) 0.5 K/mcL (1.5-4.8); Lymphocytes % (Auto) 12.6 % (15.5-49.0); Mean Cell Volume 93.8 fL (80.0-100.0); Mean Corpuscular HGB Conc 33.9 g/dL (31.0-36.0); Mean Corpuscular Hemoglobin 31.8 pg (26.0-34.0); Monocytes # (Auto) 0.6 K/mcL (0.1-0.9); Platelet Count 123 K/mcL (140-440); RBC 2.44 M/mcL (4.50-5.90); Red Cell Distribution Width 16.2 % (11.5-14.5)
[2017-02-02] MEDS: PANTOPRAZOLE 40 MG TABLET PO SCH (07:13)
[2017-02-02] MEDS: FOLIC ACID 1 MG TABLET PO SCH (08:38)
[2017-02-02] MEDS: POTASSIUM CHLORIDE 20 MEQ TABLET PO SCH ×3 (08:38→18:21)
[2017-02-02] MEDS: ATENOLOL 50 MG TABLET PO SCH (08:38)
[2017-02-02] MEDS: TAMSULOSIN 0.4 MG CAPSULE PO SCH ×2 (08:39→20:32)
[2017-02-02] MEDS: APIXABAN 5 MG TABLET PO SCH ×2 (08:39→20:33)
[2017-02-02] MEDS: cefTRIAXone 1 GM in DEXTROSE 5% IN WATER 50 ML IV SCH (08:39)
[2017-02-02] MEDS: CALCIUM W/VIT D3 500 MG TABLET PO SCH ×2 (08:49→20:32)
[2017-02-02] MEDS: FINASTERIDE 5 MG TABLET PO SCH (08:49)
--- NOTE | 2017-02-02 14:36 | Internal Med Progress Note ---
Medical - PN: Subj Patient information: Note initiated : 02/02/17 at 2:36 pm Service Date, if different from initiated Date: [] Patient: Jamarcus Lovelace 66 y/o M admitted on 01/28/17 for Worsening Shortness of Breath/CHF, Pneumonia. Chief Complaint: [] Interval history: January 28, 2017: History of present illness: Mr. Lovelace is a 66 year old man with a history of heart failure, chronic kidney disease, atrial fibrillation, sleep apnea, morbid obesity, who apparently moved here from [place] late last year. He was apparently admitted to [facility] in July of this year with urosepsis. His daughter says that he was also admitted here in October with sepsis related to UTI, acute renal failure. She believes that at the time of discharge he weighed around 324 pounds. He has since been living at [facility], and her understanding is that his weight has crept back up to 417 pounds. The patient notes that he has been feeling more short of breath over the last week or so. He has noticed increased cough, which is been nonproductive. He denies associated fever or chills. He has been noticing increased abdominal swelling lately, and also fluid leaking from his skin. He says he occasionally feels a little dizzy, but denies chest pain. He is experiencing orthopnea when he lays down, so for the last couple of weeks he has been sleeping in his recliner. He finally presented to the emergency room today with the symptoms. ER evaluation showed worsening renal function, elevated BNP, hypoxia on room air , and likely new left lower lobe infiltrate. Troponin is also moderately elevated, but he also has chronic kidney disease. He is also quite anemic, but it looks like H and H have been stable since October. Otherwise, the patient denies fever or chills, new eye or ear symptoms, sore throat. He has moderate dyspnea with exertion. He denies abdominal pain, nausea or vomiting, diarrhea or constipation. He denies significant dysuria. His daughter feels that he is eating healthier and write more regular meals since being admitted to [place], but she says he does keep snacks in his room and she believes he snacks between meals. He does not weigh daily or keep a weight diary. He does not have a rounder hand. He does not follow a fluid restricted diet or a sodium restricted diet. January 29: Today, the patient states he is having some cramping, mainly in his left thigh area. He says he has a little dyspnea when he tries to lay down, but denies significant dyspnea when he got out of bed to use the bedside commode today. He also has various aches and pains due to his arthritis pain in his shoulders and hips, etc. Otherwise, he denies fever or chills, dizziness, chest pain or palpitations, abdominal pain, nausea or vomiting, diarrhea or constipation. Capps catheter remains in place, and he says he is tolerating that quite well. January 30: Today, the patient says he is feeling better he thinks. He still has mild orthopnea, but denies less shortness of breath otherwise. He denies fever or chills, significant cough, chest pain or palpitations, abdominal pain, nausea or vomiting, diarrhea or constipation. He continues to have severe edema of his lower extremities and abdomen, but this does not seem to bother him. -He does not report leg cramps today. -He is tolerating his Capps catheter just fine so far. -he remains in atrial fibrillation, with well-controlled rate. -He remains afebrile, and in spite of pneumonia on his chest x-ray. White blood cell count continues below normal. -He sleeps fine with his CPAP at night. During the day, he is sleeping on and off. He does not drop his saturations too much as long as he keeps his oxygen on. January 31: Today, the patient notes he is feeling pretty well. He is still requiring 2 or 3 person assist to get out of bed, but once he is pulled up, can walk over to his chair. He continues to have mild orthopnea and mild dyspnea with exertion. He continues to have a cough that is mostly nonproductive. Otherwise, he denies fever chills, headaches or dizziness, chest pain or palpitations, abdominal pain, nausea or vomiting, diarrhea or constipation. He continues to tolerate the Capps catheter quite well. February 01: Today, the patient says he is feeling fairly well. Nurses note that he is having less orthopnea than he was before, and has been able to lie nearly flat for bathing etc. Unfortunately, they could not get him out of bed today. The nurse and the physical therapist could not give him enough assistance to help him stand up from the bed. He just feels too weak. Otherwise, he denies fever or chills, chest pain or palpitations or shortness of breath. He denies abdominal pain, nausea or vomiting, diarrhea or constipation. He continues to tolerate the Capps catheter just fine. -I now have him on a regimen of q. 8 hour IV diuretics, for any 8 hour period where he is not diuresing at least 300 mL. This worked well overnight. He has now diuresed about 4800 mL since admission. February 02- patient doing better. over 7000 cc net negative. No fever chills, nausea vomiting or concerns per staff. Much improved lower spine lymphedema. tolerating diet. Anticipate initiation of physical therapy. creatinine down to 1.8. stable hemodynamics. - Constitutional Vitals: Vital Signs Temp Pulse Resp BP Pulse Ox 97.1 F 75 14 123/72 94 02/02/17 11:26 02/02/17 13:14 02/02/17 13:14 02/02/17 11:26 02/02/17 13:12 Period Temp Pulse Resp BP Sys/Siegel Pulse Ox Last 24 Hr 97.0 F-99.1 F 62-80 14-20 103-129/48-72 90-97 Intake and Output 02/02/17 02/02/17 02/02/17 05:59 13:59 21:59 Intake Total 332 / 332 404 / 404 Output Total 950 / 950 550 / 550 Balance -618 / -618 -146 / -146 Intake & Output: Intake & Output 02/02/17 02/02/17 02/02/17 05:59 13:59 21:59 Intake Total 332 / 332 404 / 404 Output Total 950 / 950 550 / 550 Balance -618 / -618 -146 / -146 Intake: IV 52 / 52 154 / 154 Cleocin 300 mg In 52 / 52 104 / 104 Dextrose 5% in Water 50 ml @ 100 mls/hr IV Q6H [facility] Rx#:[id number] Rocephin 1 gm In Dextrose 50 / 50 5% in Water 50 ml @ 100 mls/hr IV Q24H [facility] Rx#: [id number] Oral 280 / 280 250 / 250 Output: Urine Catheter Amount 950 / 950 550 / 550 Other: Meal Lunch Percent of Meal Consumed 100% Feeding Ability Assist with Tray Set Up # Bowel Movements 1 General appearance: cooperative, no acute distress Exam: lalert and oriented Nonlabored breathing nondistended abdomen Much improved lymphedema Medical - PN: Obj Da - Labs CBC & Chem 7: 02/02/17 04:18 02/01/17 04:40 Labs: Abnormal Lab Results 02/02/17 02/01/17 02/01/17 04:18 04:40 04:40 WBC 3.7 L 3.8 L RBC 2.44 L 2.51 L Hgb 7.8 L 7.9 L Hct 22.9 L 23.5 L RDW 16.2 H 16.0 H Plt Count 123 L 114 L Lymph % (Auto) 12.6 L 11.3 L [place] % (Auto) 15.0 H 15.5 H Eos % (Auto) 9.2 H 10.2 H Lymph # (Auto) 0.5 L 0.4 L BUN 33 H Creatinine 1.8 H Uric Acid 11.9 H Calcium 8.3 L Total Bilirubin 1.3 H Direct Bilirubin 0.4 H GGT 66 H AST 44 H Lactate Dehydrogenase 315 H Albumin 2.9 L Globulin 4.5 H Albumin/Globulin Ratio 0.6 L 01/31/17 01/31/17 04:19 04:19 WBC 4.3 L RBC 2.44 L Hgb 7.8 L Hct 22.8 L RDW 16.4 H Plt Count 123 L Lymph % (Auto) 9.8 L [place] % (Auto) 15.3 H Eos % (Auto) 7.2 H Lymph # (Auto) 0.4 L BUN 39 H Creatinine 2.0 H Uric Acid 11.7 H Calcium 8.4 L Total Bilirubin 1.3 H Direct Bilirubin 0.5 H GGT 66 H AST Lactate Dehydrogenase Albumin 3.0 L Globulin 4.3 H Albumin/Globulin Ratio 0.7 L Meds: Medications Acetaminophen (Tylenol) 500 mg PO Q8HP PRN PRN Reason: pain Last Admin: 01/31/17 16:19 Dose: 500 mg Albuterol Sulfate (Ventolin) 2.5 mg NEB Q6HRT [facility] Last Admin: 02/02/17 13:11 Dose: 2.5 mg Atenolol (Tenormin) 50 mg PO QDAY [facility] Last Admin: 02/02/17 08:38 Dose: 50 mg Bisacodyl (Dulcolax) 10 mg PA ONCE PRN PRN Reason: Constipation Bumetanide (Bumex) 1 mg IV Q8HP PRN PRN Reason: Edema Last Admin: 01/31/17 19:32 Dose: 1 mg Calcium/Vitamin D (Calcium W/Vit D3) 500 mg PO BID [facility] Last Admin: 02/02/17 08:49 Dose: 500 mg Docusate Sodium (Colace) 100 mg PO BID PRN PRN Reason: Constipation Finasteride (Proscar) 5 mg PO QDAY [facility] Last Admin: 02/02/17 08:49 Dose: 5 mg Folic Acid (Folic Acid) 2 mg PO QDAY [facility] Last Admin: 02/02/17 08:38 Dose: 2 mg Ceftriaxone Sodium 1 gm/ (Dextrose) 50 mls @ 100 mls/hr IV Q24H [facility] Last Infusion: 02/02/17 09:15 Dose: Infused Clindamycin Phosphate 300 mg/ (Dextrose) 52 mls @ 100 mls/hr IV Q6H [facility] Last Infusion: 02/02/17 12:36 Dose: Infused Lactulose (Cephulac) 20 gm PO TID PRN PRN Reason: Constipation Lorazepam (Ativan) 0.5 mg IV Q2HP PRN PRN Reason: ANXIETY/SEDATION Magnesium Hydroxide (Milk Of Magnesia) 30 ml PO DAILYP PRN PRN Reason: Constipation Last Admin: 01/31/17 16:19 Dose: 30 ml Metolazone (Zaroxolyn) 2.5 mg PO Q8HP PRN PRN Reason: Edema Last Admin: 01/31/17 18:36 Dose: 2.5 mg Morphine Sulfate (Morphine) 4 mg IV Q2HP PRN PRN Reason: Pain Naloxone HCl (Narcan) 0.1 mg IV Q2MIN PRN PRN Reason: Opiate Reversal Nitroglycerin (Nitrostat) 0.4 mg SL Q5M PRN PRN Reason: Chest Pain Ondansetron HCl (Zofran) 4 mg IV Q4-6HP PRN PRN Reason: Nausea And Vomiting Oxycodone HCl (Roxicodone) 5 mg PO Q6HP PRN PRN Reason: Pain Last Admin: 02/02/17 11:59 Dose: 5 mg Pantoprazole Sodium (Protonix) 40 mg PO QAMAC [facility] Last Admin: 02/02/17 07:13 Dose: 40 mg Potassium Chloride (Kdur) 20 meq PO TIDCC [facility] Last Admin: 02/02/17 12:01 Dose: 20 meq Sodium Chloride (Saline Flush) 10 ml IV Q8 [facility] Last Admin: 02/02/17 13:17 Dose: 10 ml Tamsulosin HCl (Flomax) 0.4 mg PO BID [facility] Last Admin: 02/02/17 08:39 Dose: 0.4 mg Tramadol HCl (Ultram) 50 mg PO Q6H PRN PRN Reason: pain Medical - PN: A/P - Time Spent With Patient Total time spent is greater than 50% in coordination of care (as documented) at patient's floor/unit and/or counseling patient: 25 - 35 minutes - Narrative A/P Narrative: * anasarca-clinically improving with over 7000 cc net negative. Continue aggressive diuresis. Likely secondary to early cor pulmonale. normal EF on echo. * left lower lobe pneumonia likely aspiration on clindamycin/Rocephin * chronic A. fib-rate controlled. Continue anticoagulation on apixiban * elevated troponins-no further rise on serial trending. follow-up with cardiology * history of hypertension-on atenolol * history of chronic kidney disease-creatinine 1.8.stable * Pancytopenia with leukopenia/anemia and thrombocytopenia-schedule outpatient follow-up with hematology * history of NARESH-continue CPAP/oxygen * Urine retention continue tamsulosin/finasteride * Chronic pain.on oxycodone * DVT prophylaxis: Continue apixaban. * Full code plan * antibiotic coverage * Aggressive diuresis * Pre-existing medical condition management as above * Schedule follow-up outpatient with cardiology/hematology on discharge Medical - PN: Qual - VTE Deep Vein Thrombosis/Pulmonary Embolism Present on Admission: No
[2017-02-03] MEDS: ALBUTEROL SULFATE 2.5 MG/3 ML NEBULIZER NEB SCH ×4 (00:55→19:50)
[2017-02-03] MEDS: oxyCODONE HCL 5 MG TABLET PO PRN ×3 (01:09→21:08)
[2017-02-03] MEDS: BUMETANIDE 0.25 MG/ML VIAL IV PRN (03:30)
[2017-02-03] MEDS: METOLAZONE 2.5 MG TABLET PO PRN (03:30)
[2017-02-03] MEDS: 0.9 % SODIUM CHLORIDE 10 ML SYRINGE IV SCH ×3 (05:36→21:08)
[2017-02-03] MEDS: CLINDAMYCIN 300 MG in DEXTROSE 5% IN WATER 50 ML IV SCH ×3 (05:36→17:43)
[2017-02-03 05:53] LABS: Basophils # (Auto) 0 K/mcL (0.0-0.3); Basophils % (Auto) 0.3 % (0.0-2.0); Eosinophils # (Auto) 0.4 K/mcL (0.0-0.7); Eosinophils % (Auto) 10.2 % (0.0-7.0); Granulocytes % (Auto) 62.2 % (38.0-78.0); Lymphocytes # (Auto) 0.5 K/mcL (1.5-4.8); Lymphocytes % (Auto) 13.3 % (15.5-49.0); Mean Cell Volume 93.4 fL (80.0-100.0); Mean Corpuscular HGB Conc 34.3 g/dL (31.0-36.0); Mean Corpuscular Hemoglobin 32.1 pg (26.0-34.0); Monocytes # (Auto) 0.5 K/mcL (0.1-0.9); Platelet Count 130 K/mcL (140-440); RBC 2.47 M/mcL (4.50-5.90); Red Cell Distribution Width 16.1 % (11.5-14.5)
[2017-02-03] MEDS: PANTOPRAZOLE 40 MG TABLET PO SCH (07:09)
[2017-02-03] MEDS: POTASSIUM CHLORIDE 20 MEQ TABLET PO SCH ×3 (08:05→17:43)
--- NOTE | 2017-02-03 08:05 | Internal Med Progress Note ---
Medical - PN: Subj Patient information: Note initiated : 02/03/17 at 8:02 am Service Date, if different from initiated Date: [] Patient: Jamarcus Lovelace 66 y/o M admitted on 01/28/17 for Worsening Shortness of Breath/CHF, Pneumonia. Chief Complaint: [] Interval history: January 28, 2017: History of present illness: Mr. Lovelace is a 66 year old man with a history of heart failure, chronic kidney disease, atrial fibrillation, sleep apnea, morbid obesity, who apparently moved here from [place] late last year. He was apparently admitted to [facility] in July of this year with urosepsis. His daughter says that he was also admitted here in October with sepsis related to UTI, acute renal failure. She believes that at the time of discharge he weighed around 324 pounds. He has since been living at [facility], and her understanding is that his weight has crept back up to 417 pounds. The patient notes that he has been feeling more short of breath over the last week or so. He has noticed increased cough, which is been nonproductive. He denies associated fever or chills. He has been noticing increased abdominal swelling lately, and also fluid leaking from his skin. He says he occasionally feels a little dizzy, but denies chest pain. He is experiencing orthopnea when he lays down, so for the last couple of weeks he has been sleeping in his recliner. He finally presented to the emergency room today with the symptoms. ER evaluation showed worsening renal function, elevated BNP, hypoxia on room air , and likely new left lower lobe infiltrate. Troponin is also moderately elevated, but he also has chronic kidney disease. He is also quite anemic, but it looks like H and H have been stable since October. Otherwise, the patient denies fever or chills, new eye or ear symptoms, sore throat. He has moderate dyspnea with exertion. He denies abdominal pain, nausea or vomiting, diarrhea or constipation. He denies significant dysuria. His daughter feels that he is eating healthier and write more regular meals since being admitted to [place], but she says he does keep snacks in his room and she believes he snacks between meals. He does not weigh daily or keep a weight diary. 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 He does not follow a fluid restricted diet or a sodium restricted diet. January 29: Today, the patient states he is having some cramping, mainly in his left thigh area. He says he has a little dyspnea when he tries to lay down, but denies significant dyspnea when he got out of bed to use the bedside commode today. He also has various aches and pains due to his arthritis pain in his shoulders and hips, etc. Otherwise, he denies fever or chills, dizziness, chest pain or palpitations, abdominal pain, nausea or vomiting, diarrhea or constipation. Capps catheter remains in place, and he says he is tolerating that quite well. January 30: Today, the patient says he is feeling better he thinks. He still has mild orthopnea, but denies less shortness of breath otherwise. He denies fever or chills, significant cough, chest pain or palpitations, abdominal pain, nausea or vomiting, diarrhea or constipation. He continues to have severe edema of his lower extremities and abdomen, but this does not seem to bother him. -He does not report leg cramps today. -He is tolerating his Capps catheter just fine so far. -he remains in atrial fibrillation, with well-controlled rate. -He remains afebrile, and in spite of pneumonia on his chest x-ray. White blood cell count continues below normal. -He sleeps fine with his CPAP at night. During the day, he is sleeping on and off. He does not drop his saturations too much as long as he keeps his oxygen on. January 31: Today, the patient notes he is feeling pretty well. He is still requiring 2 or 3 person assist to get out of bed, but once he is pulled up, can walk over to his chair. He continues to have mild orthopnea and mild dyspnea with exertion. He continues to have a cough that is mostly nonproductive. Otherwise, he denies fever chills, headaches or dizziness, chest pain or palpitations, abdominal pain, nausea or vomiting, diarrhea or constipation. He continues to tolerate the Capps catheter quite well. February 01: Today, the patient says he is feeling fairly well. Nurses note that he is having less orthopnea than he was before, and has been able to lie nearly flat for bathing etc. Unfortunately, they could not get him out of bed today. The nurse and the physical therapist could not give him enough assistance to help him stand up from the bed. He just feels too weak. Otherwise, he denies fever or chills, chest pain or palpitations or shortness of breath. He denies abdominal pain, nausea or vomiting, diarrhea or constipation. He continues to tolerate the Capps catheter just fine. -I now have him on a regimen of q. 8 hour IV diuretics, for any 8 hour period where he is not diuresing at least 300 mL. This worked well overnight. He has now diuresed about 4800 mL since admission. February 02- patient doing better. over 7000 cc net negative. No fever chills, nausea vomiting or concerns per staff. Much improved lower spine lymphedema. tolerating diet. Anticipate initiation of physical therapy. creatinine down to 1.8. stable hemodynamics. February 03- remarkable response to diuretics. over 7500 cc negative. bilateral lower extremity brawny induration/lymphedema and stasis changes have significantly improved. Patient is afebrile. hemoglobin 7.9 unchanged. attempt physical therapy today to evaluate progress. Patient has large body habitus with a BMI of over 50 limiting his activities. anticipate SNF transfer for continued posthospitalization rehabilitation. continue antibiotic coverage for left lower lobe pneumonia 02/05. - Constitutional Vitals: Vital Signs Temp Pulse Resp BP Pulse Ox 97.9 F 70 16 137/70 94 02/03/17 04:00 02/03/17 07:35 02/03/17 07:35 02/03/17 04:00 02/03/17 07:35 Period Temp Pulse Resp BP Sys/Siegel Pulse Ox Last 24 Hr 97.1 F-98.6 F 69-86 14-20 123-145/70-81 94-98 Intake and Output 02/02/17 02/03/17 02/03/17 21:59 05:59 13:59 Intake Total 652 / 652 52 / 52 182 / 182 Output Total 350 / 350 350 / 350 Balance 302 / 302 -298 / -298 182 / 182 Weight 411 lb Intake & Output: Intake & Output 02/02/17 02/03/17 02/03/17 21:59 05:59 13:59 Intake Total 652 / 652 52 / 52 182 / 182 Output Total 350 / 350 350 / 350 Balance 302 / 302 -298 / -298 182 / 182 Weight 411 lb Intake: IV 52 / 52 52 / 52 Cleocin 300 mg In 52 / 52 52 / 52 Dextrose 5% in Water 50 ml @ 100 mls/hr IV Q6H [facility] Rx#:[id number] Oral 600 / 600 130 / 130 Output: Urine Catheter Amount 350 / 350 350 / 350 Other: Meal Dinner Percent of Meal Consumed 100% Feeding Ability Assist with Tray Set Up # Bowel Movements 1 General appearance: morbidly obese, no acute distress Exam: resting comfortably in bed Lymphedema has improved On room air nonlabored breathing No anxiety Medical - PN: Obj Da - Labs CBC & Chem 7: 02/03/17 04:57 02/01/17 04:40 Labs: Abnormal Lab Results 02/03/17 02/02/17 02/01/17 04:57 04:18 04:40 WBC 3.9 L 3.7 L 3.8 L RBC 2.47 L 2.44 L 2.51 L Hgb 7.9 L 7.8 L 7.9 L Hct 23.0 L 22.9 L 23.5 L RDW 16.1 H 16.2 H 16.0 H Plt Count 130 L 123 L 114 L Lymph % (Auto) 13.3 L 12.6 L 11.3 L [place] % (Auto) 14.0 H 15.0 H 15.5 H Eos % (Auto) 10.2 H 9.2 H 10.2 H Lymph # (Auto) 0.5 L 0.5 L 0.4 L BUN Creatinine Uric Acid Calcium Total Bilirubin Direct Bilirubin GGT AST Lactate Dehydrogenase Albumin Globulin Albumin/Globulin Ratio 02/01/17 04:40 WBC RBC Hgb Hct RDW Plt Count Lymph % (Auto) [place] % (Auto) Eos % (Auto) Lymph # (Auto) BUN 33 H Creatinine 1.8 H Uric Acid 11.9 H Calcium 8.3 L Total Bilirubin 1.3 H Direct Bilirubin 0.4 H GGT 66 H AST 44 H Lactate Dehydrogenase 315 H Albumin 2.9 L Globulin 4.5 H Albumin/Globulin Ratio 0.6 L Meds: Medications Acetaminophen (Tylenol) 500 mg PO Q8HP PRN PRN Reason: pain Last Admin: 01/31/17 16:19 Dose: 500 mg Albuterol Sulfate (Ventolin) 2.5 mg NEB Q6HRT [facility] Last Admin: 02/03/17 07:14 Dose: 2.5 mg Atenolol (Tenormin) 50 mg PO QDAY [facility] Last Admin: 02/02/17 08:38 Dose: 50 mg Bisacodyl (Dulcolax) 10 mg DC ONCE PRN PRN Reason: Constipation Calcium/Vitamin D (Calcium W/Vit D3) 500 mg PO BID [facility] Last Admin: 02/02/17 20:32 Dose: 500 mg Docusate Sodium (Colace) 100 mg PO BID PRN PRN Reason: Constipation Finasteride (Proscar) 5 mg PO QDAY [facility] Last Admin: 02/02/17 08:49 Dose: 5 mg Folic Acid (Folic Acid) 2 mg PO QDAY [facility] Last Admin: 02/02/17 08:38 Dose: 2 mg Ceftriaxone Sodium 1 gm/ (Dextrose) 50 mls @ 100 mls/hr IV Q24H [facility] Last Infusion: 02/02/17 09:15 Dose: Infused Clindamycin Phosphate 300 mg/ (Dextrose) 52 mls @ 100 mls/hr IV Q6H [facility] Last Infusion: 02/03/17 06:20 Dose: Infused Lactulose (Cephulac) 20 gm PO TID PRN PRN Reason: Constipation Lorazepam (Ativan) 0.5 mg IV Q2HP PRN PRN Reason: ANXIETY/SEDATION Magnesium Hydroxide (Milk Of Magnesia) 30 ml PO DAILYP PRN PRN Reason: Constipation Last Admin: 01/31/17 16:19 Dose: 30 ml Metolazone (Zaroxolyn) 2.5 mg PO Q8HP PRN PRN Reason: Edema Last Admin: 02/03/17 03:30 Dose: 2.5 mg Morphine Sulfate (Morphine) 4 mg IV Q2HP PRN PRN Reason: Pain Naloxone HCl (Narcan) 0.1 mg IV Q2MIN PRN PRN Reason: Opiate Reversal Nitroglycerin (Nitrostat) 0.4 mg SL Q5M PRN PRN Reason: Chest Pain Ondansetron HCl (Zofran) 4 mg IV Q4-6HP PRN PRN Reason: Nausea And Vomiting Oxycodone HCl (Roxicodone) 5 mg PO Q6HP PRN PRN Reason: Pain Last Admin: 02/03/17 01:09 Dose: 5 mg Pantoprazole Sodium (Protonix) 40 mg PO QAMAC [facility] Last Admin: 02/03/17 07:09 Dose: 40 mg Potassium Chloride (Kdur) 20 meq PO TIDCC [facility] Last Admin: 02/02/17 18:21 Dose: 20 meq Sodium Chloride (Saline Flush) 10 ml IV Q8 [facility] Last Admin: 02/03/17 05:36 Dose: 10 ml Tamsulosin HCl (Flomax) 0.4 mg PO BID [facility] Last Admin: 02/02/17 20:32 Dose: 0.4 mg Tramadol HCl (Ultram) 50 mg PO Q6H PRN PRN Reason: pain Medical - PN: A/P - Time Spent With Patient Total time spent is greater than 50% in coordination of care (as documented) at patient's floor/unit and/or counseling patient: 25 - 35 minutes - Narrative A/P Narrative: * Anasarca-clinically improving with over 7000 cc net negative. Continue aggressive diuresis. Likely secondary to early cor pulmonale. normal EF on echo. * Left lower lobe pneumonia likely aspiration on clindamycin/Rocephin * Chronic A. fib-rate controlled. * Continue anticoagulation for CVA prophylaxis on apixiban * elevated troponins-no further rise on serial trending. follow-up with cardiology * Hypertension-systolics around 130s on atenolol * history of chronic kidney disease-creatinine around baseline * Pancytopenia with leukopenia/anemia and thrombocytopenia-schedule outpatient follow-up with hematology * history of NARESH-continue CPAP/oxygen * Urine retention continue tamsulosin/finasteride * Chronic pain.on oxycodone * DVT prophylaxis: Continue apixaban. * Full code plan * antibiotic coverage through 02/05 * continue diuresis * out of bed to chair 2 times a day and all meals sitting upright * Aggressive physical therapy and SNF transfer coordination likely in 24-48 hours * Pre-existing medical condition management as above * Schedule follow-up outpatient with cardiology/hematology on discharge Medical - PN: Qual - VTE Deep Vein Thrombosis/Pulmonary Embolism Present on Admission: No
[2017-02-03] MEDS: ATENOLOL 50 MG TABLET PO SCH (09:42)
[2017-02-03] MEDS: FOLIC ACID 1 MG TABLET PO SCH (09:42)
[2017-02-03] MEDS: TAMSULOSIN 0.4 MG CAPSULE PO SCH ×2 (09:43→21:07)
[2017-02-03] MEDS: APIXABAN 5 MG TABLET PO SCH ×2 (09:43→21:07)
[2017-02-03] MEDS: cefTRIAXone 1 GM in DEXTROSE 5% IN WATER 50 ML IV SCH (09:43)
[2017-02-03] MEDS: FINASTERIDE 5 MG TABLET PO SCH (09:46)
[2017-02-03] MEDS: CALCIUM W/VIT D3 500 MG TABLET PO SCH ×2 (09:46→21:07)
[2017-02-03 10:13] LABS: ALT/SGPT 14 U/l (0-40); Albumin 2.8 gm/dL (3.2-5.2); Albumin/Globulin Ratio 0.7 (1.0-2.3); Alkaline Phosphatase 95 U/L (39-117); Bilirubin,Direct 0.4 mg/dL (0.0-0.3); Blood Urea Nitrogen 36 mg/dl (8-23); Gamma Glutamyl Transpeptidase 68 U/L (8-61); Magnesium 2.2 mg/dL (1.6-2.5); Uric Acid 12.1 mg/dL (2.5-8.0)
[2017-02-03] MEDS ORDERED: POTASSIUM CHLORIDE 20 MEQ TABLET PO ONE (10:14)
--- NOTE | 2017-02-03 18:41 | General Surgery Consult Note ---
History of Present Illness Patient information: Note initiated : 02/03/17 at 6:36 pm Service Date, if different from initiated Date: [] Patient: Jamarcus Lovelace 66 y/o M admitted on 01/28/17 for Worsening Shortness of Breath/CHF, Pneumonia. Chief Complaint: [] Consult date: 02/03/17 Requesting physician: Shadi Shepherd (wound care consult) History of present illness: I saw the chart, examined this patient along with [facility] [place] inpatient wound care nurse This is a 66-year-old male with multiple comorbid medical problems. currently, he is recovering in the intensive care unit. He was diuresed and his hemodynamic parameters and other systemic symptoms have since improved with aggressive medical management and diuresis of over 7500 .ml. During examination, he was noted to have chronic scales dermatitis of both legs. Additionally there were scattered areas of black adherent eschar on the dorsal aspect of left There is no acute threatened ischemia. Patient can be treated conservatively and these areas can be observed. recommend daily cleansing of both lower extremities from the knees down to bilaterally with chlorhexidine solution. Dry with a washcloth. Keep the left foot skin lesions over the toes clean and dry. Okay for the patient to be discharged to a [facility] facility from the wound care point of view. If discharged, he can be followed up in the wound care clinic in 7-10 days. . Medications and Allergies Home Medications Medication Instructions Recorded Confirmed Type apixaban 5 mg tablet 5 mg PO BID 07/03/16 01/28/17 History omeprazole 20 mg capsule,delayed 20 mg PO QDAY cap 07/03/16 01/28/17 History release Bisacodyl [Dulcolax] 10 mg GA ONCE PRN 10/29/16 01/28/17 History diphenhydrAMINE HCL [Banophen] 25 mg PO Q6HP PRN 10/29/16 01/28/17 History finasteride 5 mg tablet 5 mg PO QDAY #90 tab 11/07/16 01/28/17 Rx acetaminophen 500 mg tablet 500 mg PO Q8H PRN #90 tab 12/03/16 01/28/17 Rx folic acid 1 mg tablet 2 tab PO QDAY #60 tab 12/03/16 01/28/17 Rx lactulose 20 gram/30 mL oral 30 ml PO TID PRN #890 ml 12/03/16 01/28/17 Rx solution potassium chloride ER 20 mEq 1 cap PO TID #90 tab 12/03/16 01/28/17 Rx tablet,extended release(part/cryst) tamsulosin 0.4 mg capsule 0.4 mg PO BID #60 cap 12/03/16 01/28/17 Rx tramadol 50 mg tablet 50 mg PO Q6H PRN #120 tab 12/04/16 01/28/17 Rx atenolol 50 mg tablet 50 mg PO QDAY #45 tab 12/24/16 01/28/17 Rx furosemide 80 mg tablet 80 mg PO QDAY #90 tab 01/02/17 01/28/17 Rx CPAP with 02 1 puff INHALATION ONCE #1 each 01/06/17 01/28/17 Rx oxycodone 5 mg capsule 5 mg PO Q6H PRN #120 cap 01/06/17 01/28/17 Rx Allergies Allergy/AdvReac Type Severity Reaction Status Date / Time Penicillins Allergy Intermediate Hives Verified 10/29/16 19:28 codeine AdvReac Mild Nausea Verified 10/29/16 19:28 Exam Temp Pulse Resp BP Pulse Ox 97.7 F 72 20 132/65 96 02/03/17 16:00 02/03/17 13:26 02/03/17 16:00 02/03/17 16:00 02/03/17 16:00 Results - Labs 02/03/17 04:57 02/03/17 08:12 Abnormal lab results 02/03/17 02/03/17 Range/Units 04:57 08:12 WBC 3.9 L (4.5-11.0) K/mcL RBC 2.47 L (4.50-5.90) M/mcL Hgb 7.9 L (13.5-16.5) g/dL Hct 23.0 L (41.0-55.0) % RDW 16.1 H (11.5-14.5) % Plt Count 130 L (140-440) K/mcL Lymph % (Auto) 13.3 L (15.5-49.0) % [place] % (Auto) 14.0 H (1.0-12.0) % Eos % (Auto) 10.2 H (0.0-7.0) % Lymph # (Auto) 0.5 L (1.5-4.8) K/mcL Potassium 2.9 L* (3.3-5.1) mmol/L Carbon Dioxide 31 H (22-30) mmol/L BUN 36 H (8-23) mg/dl Creatinine 1.7 H (0.7-1.2) mg/dl Uric Acid 12.1 H (2.5-8.0) mg/dL Calcium 8.4 L (8.6-10.4) mg/dl Total Bilirubin 1.2 H (0.0-1.0) mg/dL Direct Bilirubin 0.4 H (0.0-0.3) mg/dL GGT 68 H (8-61) U/L Albumin 2.8 L (3.2-5.2) gm/dL Globulin 4.3 H (2.2-3.7) gm/dL Albumin/Globulin Ratio 0.7 L (1.0-2.3) Diabetes panel 02/03/17 Range/Units 08:12 Sodium 138 (133-145) mmol/L Potassium 2.9 L* (3.3-5.1) mmol/L Chloride 97 (96-108) mmol/L Carbon Dioxide 31 H (22-30) mmol/L BUN 36 H (8-23) mg/dl Creatinine 1.7 H (0.7-1.2) mg/dl Glucose 105 (70-105) mg/dL Calcium 8.4 L (8.6-10.4) mg/dl AST 34 (0-37) U/l ALT 14 (0-40) U/l Alkaline Phosphatase 95 (39-117) U/L Total Protein 7.1 (5.9-8.4) gm/dL Albumin 2.8 L (3.2-5.2) gm/dL Triglycerides 75 (<150) mg/dl Calcium panel 02/03/17 Range/Units 08:12 Calcium 8.4 L (8.6-10.4) mg/dl Phosphorus 4.2 (2.7-4.5) mg/dL Albumin 2.8 L (3.2-5.2) gm/dL Pituitary panel 02/03/17 Range/Units 08:12 Sodium 138 (133-145) mmol/L Potassium 2.9 L* (3.3-5.1) mmol/L Chloride 97 (96-108) mmol/L Carbon Dioxide 31 H (22-30) mmol/L BUN 36 H (8-23) mg/dl Creatinine 1.7 H (0.7-1.2) mg/dl Glucose 105 (70-105) mg/dL Calcium 8.4 L (8.6-10.4) mg/dl Adrenal panel 02/03/17 Range/Units 08:12 Sodium 138 (133-145) mmol/L Potassium 2.9 L* (3.3-5.1) mmol/L Chloride 97 (96-108) mmol/L Carbon Dioxide 31 H (22-30) mmol/L BUN 36 H (8-23) mg/dl Creatinine 1.7 H (0.7-1.2) mg/dl Glucose 105 (70-105) mg/dL Calcium 8.4 L (8.6-10.4) mg/dl Total Bilirubin 1.2 H (0.0-1.0) mg/dL AST 34 (0-37) U/l ALT 14 (0-40) U/l Alkaline Phosphatase 95 (39-117) U/L Total Protein 7.1 (5.9-8.4) gm/dL Albumin 2.8 L (3.2-5.2) gm/dL All other labs normal.
[2017-02-04] MEDS: CLINDAMYCIN 300 MG in DEXTROSE 5% IN WATER 50 ML IV SCH ×3 (00:26→12:11)
[2017-02-04] MEDS: ALBUTEROL SULFATE 2.5 MG/3 ML NEBULIZER NEB SCH ×3 (00:32→13:17)
[2017-02-04] MEDS: 0.9 % SODIUM CHLORIDE 10 ML SYRINGE IV SCH (05:04)
[2017-02-04 05:59] LABS: Basophils # (Auto) 0 K/mcL (0.0-0.3); Basophils % (Auto) 0.6 % (0.0-2.0); Eosinophils # (Auto) 0.3 K/mcL (0.0-0.7); Eosinophils % (Auto) 9.8 % (0.0-7.0); Granulocytes % (Auto) 62.2 % (38.0-78.0); Lymphocytes # (Auto) 0.5 K/mcL (1.5-4.8); Lymphocytes % (Auto) 14.4 % (15.5-49.0); Mean Cell Volume 92.8 fL (80.0-100.0); Mean Corpuscular HGB Conc 34.7 g/dL (31.0-36.0); Mean Corpuscular Hemoglobin 32.2 pg (26.0-34.0); Monocytes # (Auto) 0.5 K/mcL (0.1-0.9); Platelet Count 127 K/mcL (140-440); RBC 2.43 M/mcL (4.50-5.90); Red Cell Distribution Width 16.1 % (11.5-14.5)
[2017-02-04] MEDS: PANTOPRAZOLE 40 MG TABLET PO SCH (06:45)
[2017-02-04 06:51] LABS: ALT/SGPT 14 U/l (0-40); Albumin 2.9 gm/dL (3.2-5.2); Albumin/Globulin Ratio 0.7 (1.0-2.3); Alkaline Phosphatase 97 U/L (39-117); Bilirubin,Direct 0.4 mg/dL (0.0-0.3); Blood Urea Nitrogen 39 mg/dl (8-23); Gamma Glutamyl Transpeptidase 72 U/L (8-61); Magnesium 2.3 mg/dL (1.6-2.5); Uric Acid 12.7 mg/dL (2.5-8.0)
[2017-02-04] MEDS ORDERED: BUMETANIDE 1 MG TABLET PO SCH (09:00)
[2017-02-04] MEDS: CALCIUM W/VIT D3 500 MG TABLET PO SCH (09:30)
[2017-02-04] MEDS: POTASSIUM CHLORIDE 20 MEQ TABLET PO SCH ×2 (09:30→12:15)
[2017-02-04] MEDS: TAMSULOSIN 0.4 MG CAPSULE PO SCH (09:40)
[2017-02-04] MEDS: APIXABAN 5 MG TABLET PO SCH (10:03)
[2017-02-04] MEDS: cefTRIAXone 1 GM in DEXTROSE 5% IN WATER 50 ML IV SCH (10:04)
[2017-02-04] MEDS: ATENOLOL 50 MG TABLET PO SCH (10:04)
[2017-02-04] MEDS: FINASTERIDE 5 MG TABLET PO SCH (10:04)
[2017-02-04] MEDS: FOLIC ACID 1 MG TABLET PO SCH (10:04)
--- NOTE | 2017-02-04 14:26 | Discharge Summary ---
Medical - DS: Prov Patient information: Note initiated : 02/04/17 at 2:20 pm Service Date, if different from initiated Date: [] Patient: Jamarcus Lovelace 66 y/o M admitted on 01/28/17 for Worsening Shortness of Breath/CHF, Pneumonia. Chief Complaint: [] Date of admission: 01/28/17 17:40 Discharge date: 02/04/17 Primary care physician: Jae Leblanc Admitting clinician: Merly Burnett Consults: 02/03/17 11:53 Consult to Physician [CONS] Routine Comment: toe wound Consulting Provider: Samuel Dee Reason For Exam: Physician to Consult Discharging clinician: Hill Germain Medical - DS: Meds - Discharge Medications Prescriptions: Bumetanide 2 mg PO DAILY #30 tablet Levofloxacin [Levaquin] 750 mg PO DAILY #1 tablet Active and Home Medications: Home Medications apixaban 5 mg tablet 5 mg PO BID 07/03/16 [History Confirmed 01/28/17 Last Taken Unknown] omeprazole 20 mg capsule,delayed release 20 mg PO QDAY cap 07/03/16 [History Confirmed 01/28/17 Last Taken Unknown] Bisacodyl [Dulcolax] 10 mg NV ONCE PRN 10/29/16 [History Confirmed 01/28/17 Last Taken Unknown] diphenhydrAMINE HCL [Banophen] 25 mg PO Q6HP PRN 10/29/16 [History Confirmed 07/05 Last Taken Unknown] finasteride 5 mg tablet 5 mg PO QDAY #90 tab 11/07/16 [Rx Confirmed 01/28/17 Last Taken Unknown] acetaminophen 500 mg tablet 500 mg PO Q8H PRN #90 tab 12/03/16 [Rx Confirmed 07/05 Last Taken Unknown] folic acid 1 mg tablet 2 tab PO QDAY #60 tab 12/03/16 [Rx Confirmed 01/28/17 Last Taken Unknown] lactulose 20 gram/30 mL oral solution 30 ml PO TID PRN #890 ml 12/03/16 [Rx Confirmed 01/28/17 Last Taken Unknown] potassium chloride ER 20 mEq tablet,extended release(part/cryst) 1 cap PO TID # 90 tab 12/03/16 [Rx Confirmed 01/28/17 Last Taken Unknown] tamsulosin 0.4 mg capsule 0.4 mg PO BID #60 cap 12/03/16 [Rx Confirmed 01/28/17 Last Taken Unknown] tramadol 50 mg tablet 50 mg PO Q6H PRN #120 tab 12/04/16 [Rx Confirmed 01/28/17 Last Taken Unknown] atenolol 50 mg tablet 50 mg PO QDAY #45 tab 12/24/16 [Rx Confirmed 01/28/17 Last Taken Unknown] furosemide 80 mg tablet 80 mg PO QDAY #90 tab 01/02/17 [Rx Confirmed 01/28/17 Last Taken Unknown] CPAP with 02 1 puff INHALATION ONCE #1 each 01/06/17 [Rx Confirmed 01/28/17 Last Taken Unknown] oxycodone 5 mg capsule 5 mg PO Q6H PRN #120 cap 01/06/17 [Rx Confirmed 01/28/17 Last Taken Unknown] Medical - DS: Hosp Hospital course: Mr. Lovelace is a 66 year old Male with h/o afib, morbid obesity, ckd, chf, who presented to the ER from [facility] complaining of shortness of breath. He also noted significant edema in his lower leg, and a non productive cough. He was admitted to the hospital with pneumonia, ANAsarca, acute on chr renal failure. Pneumonia: treated with rocephin and clindamycin patient responded to treatment very well, he completed 6 days of abx here, will take additional day of levofloxacin to complete 7 day treatment. CHF/ Anasarca: patient has significant weight gain, treated with IV lasix. initially with ok response, he responded remarkably well to bumex, metolozone therapy. He is supposed to be on lasix 80mg once daily, which on discharge has been switched to dose equivalent bumex 2mg once daily. He will continue with K supplements. The patient subjectively feels better and is -6600ml at discharge. Echo done shows normal lvef, but moderate LVH with mild LV dilation, bilaterial enlargement, RV pressure/ pulm pressure could not be estimated. SANA on CKD: Patient has CKD with baseline renal function at around 1 around early this year, his creat has been around 2 at admission and gradually improved to 1.6, likely has cardiorenal syndrome. Should the creatinine not improve back to baseline, I would reccommend a referral to [facility] for further eval. Pancytopenia: Pt has low wbc, hb and platlet counts. this could be from acute infection and other comorobidites. The patient will benefit from outpatient evaluation by hematology. Chr lower extremity Wounds: seen by wound care clinic, advised outpatient follow up. Daily chlorhexidine washes. The rest of his medical condition was stable, he was advised strongly a discharge to rehab facility, but the patient declined. HE fully understands the risk of going against medical advise. including against PT advise, risk of falls , fractures, head injury etc. Patient declined placement and noted he would like to go back to [facility]. We have made referral to [facility]. Should the patient fail his discharge back to [facility], he should be able to go to [facility] in 24- 48 hrs after discharge. Discharge diagnosis: Pneumonia, CHF exacerbation. - Time Spent with Patient Total time spent providing and/or coordinating discharge services: Greater than 30 minutes Medical - DS: Exam - Constitutional Vitals: Vital Signs Temp Pulse Pulse Resp BP Pulse Ox 02/04/17 12:52 96.8 F L 02/04/17 08:00 96.8 F L 83 18 116/60 95 02/04/17 04:00 97.8 F 16 129/64 94 02/03/17 23:30 97.8 F 20 116/59 92 02/03/17 19:56 98.4 F 20 134/80 97 02/03/17 19:54 72 16 02/03/17 19:50 93 02/03/17 19:02 73 97 02/03/17 16:00 97.7 F 20 132/65 96 Intake and Output 02/04/17 02/04/17 02/04/17 05:59 13:59 21:59 Intake Total 104 / 104 200 / 200 Output Total 400 / 400 Balance -296 / -296 200 / 200 Intake: IV 104 / 104 Cleocin 300 mg In 104 / 104 Dextrose 5% in Water 50 ml @ 100 mls/hr IV Q6H YELE[facility] Rx#:[id number] Oral 200 / 200 Output: Urine Catheter Amount 400 / 400 Other: # Bowel Movements 1 Weight 409 lb 9.6 oz Patient Weight 02/05/17 05:59 Weight 409 lb 9.6 oz Additional comments: Constitutional; Afebrile, cooperative, alert, not in distress. Eyes- No icterus, , No periorbital swelling Ears- Ext ear normal, hearing normal to conversation. Neck- Midline trachea, supple Respiratory system: Air Entry equal on both sides, No crackles or wheezing, no rhonchi. CVS- Rate rhythm irregular, S1,S2 heard, no gallop, no rub.systolic murmur, lsbb vahe pedal edema Abdomen- Soft nontender abdomen, no organomegaly, no tenderness, no guarding or rigidity, large pannus. 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 Medical - DS: Data Labs on day of discharge: Labs from last 24 hours 02/04/17 02/04/17 03:55 03:55 WBC 3.6 L RBC 2.43 L Hgb 7.8 L Hct 22.5 L MCV 92.8 MCH 32.2 MCHC 34.7 RDW 16.1 H Plt Count 127 L MPV 8.6 Gran % 62.2 Lymph % (Auto) 14.4 L [place] % (Auto) 13.0 H Eos % (Auto) 9.8 H Baso % (Auto) 0.6 Gran # 2.2 Lymph # (Auto) 0.5 L [place] # (Auto) 0.5 Eos # (Auto) 0.3 Baso # (Auto) 0 Sodium 140 Potassium 3.4 Chloride 99 Carbon Dioxide 31 H Anion Gap 10.0 BUN 39 H Creatinine 1.6 H GFR Calculation 44 Glucose 98 Uric Acid 12.7 H Calcium 8.6 Phosphorus 4.2 Magnesium 2.3 Total Bilirubin 1.1 H Direct Bilirubin 0.4 H GGT 72 H AST 33 ALT 14 Alkaline Phosphatase 97 Lactate Dehydrogenase 244 Total Protein 7.3 Albumin 2.9 L Globulin 4.4 H Albumin/Globulin Ratio 0.7 L Triglycerides 58 Medical - DS: A/P - Patient/Caregiver Discharge Instructions Activity: as per physical therapy, increase activity as tolerated Diet: Cardiac, Renal Additional Instructions: Schedule a follow up appointment for 1 week after discharge with Dr. Dee for toe wound. Wash your legs with OTC chlorhexidine solution daily. Take your medications as prescribed Your Furosemide has been stopped. You are starting on bumetanidine 2mg once daily You will follow up with [facility] in 7 days Please follow up with Hematology in 2-3 weeks. New referral needed for pancytopenia. - Follow up Plan Follow up with: Samuel Dee MD [Physician] - Jae Leblanc DO [Primary Care Provider] - Rock Becker MD [Physician] - Disposition: Home Health Service Prognosis: Fair Rehab Potential: Fair I certify that the patient requires SNF services: No (Patient declined SNF services.) Overall status at discharge: patient is progressing back to baseline Medical - DS: Qual - VTE Deep Vein Thrombosis/Pulmonary Embolism Present on Admission: No
[2017-02-05] MEDS ORDERED: BUMETANIDE 1 MG TABLET PO SCH (09:00)
== END 2017-02-04 15:40 | disposition home health service (06) | DRG 291 ==
LOC: ED 14:00 → ICU 17:40
PROVIDERS: ADMIT Internal Medicine; ATTEND Internal Medicine